=== PATIENT | male | born 1935 | race Hispanic/Latino ===

== ENCOUNTER 2017-07-17 15:37 | Inpatient (IN) | payer MEDICARE ==
[~2017-07-17] VITALS: Ht 167.6 cm; Wt 81.3 kg
[~2017-07-17 15:37] MED LIST: AMITIZA24 MCG PO; VICODIN 5-5001 EACH PO; Z.0.AMLODIPINE BESY1 PO; Z.0.GLYBURIDE5 MG PO; Z.0.TRICOR145 MG PO; Z.1.LISINOPRIL-HCT1 PO
[2017-07-17] MEDS ORDERED: ZOFRAN ODT4 MG (15:55)
[2017-07-17] MEDS ORDERED: LOSARTAN-HCTZ1 EACH PO (15:55)
[2017-07-17] MEDS ORDERED: HYDRALAZINE HCL25 MG PO (15:55)
[2017-07-17] MEDS ORDERED: prunelax (15:55)
[2017-07-17] MEDS ORDERED: NATEGLINIDE120 MG PO (15:55)
[2017-07-17] MEDS ORDERED: GLIMEPIRIDE2 MG PO (15:55)
[2017-07-17] MEDS ORDERED: ASPIRIN EC81 MG PO (15:55)
[2017-07-17] MEDS ORDERED: MORPHINE SULFATE 2 MG/ML SYR IV STA (16:14)
[2017-07-17] MEDS ORDERED: ONDANSETRON HCL INJ 2 MG/ML VIAL IV STA (16:14)
[2017-07-17 16:32] LABS: BASOPHILS % 0.5 % (0.0-1.0); EOSINOPHILS % 0.1 % (0.0-6.0); HEMATOCRIT 35.2 % (38.2-49.6); HEMOGLOBIN 11.8 g/dL (14.0-18.0); LYMPHOCYTES # (AUTO) 0.6 (1.0-3.2); MEAN CORPUSCULAR HEMOGLOBIN 32.2 pg (28-32); MEAN CORPUSCULAR HGB CONC 33.5 g/dL (31-35); MEAN CORPUSCULAR VOLUME 95.9 fL (81-99); MONOCYTES # (AUTO) 0.2 (0.2-0.8); MONOCYTES % 2.5 % (4.4-11.3); NEUTROPHILS # (AUTO) 7.5 (2.1-6.9); NEUTROPHILS % 89.5 % (38.7-80.0); PLATELET COUNT 218 x10e3/uL (140-360); RED BLOOD COUNT 3.67 x10e6/uL (4.3-5.7); RED CELL DISTRIBUTION WIDTH 13.3 % (11.7-14.4)
[2017-07-17 16:41] LABS: INR 1.01; PARTIAL THROMBOPLASTIN TIME 23.5 seconds (23.8-35.5); PROTHROMBIN TIME 13.8 seconds (11.9-14.5)
[2017-07-17 16:49] LABS: ALBUMIN 4.3 g/dL (3.5-5.0); ALBUMIN/GLOBULIN RATIO 1.4 (0.8-2.0); ANION GAP 14.8 mmol/L (8-16); CALCIUM 9.6 mg/dL (8.4-10.2); CREATININE, SERUM 1.34 mg/dL (0.72-1.25); POTASSIUM 3.8 mmol/L (3.5-5.1)
[2017-07-17 16:55] LABS: CREATINE KINASE MB 3.2 ng/mL (0.00-5.00); TROPONIN I 0.015 ng/mL (0-0.300)
[2017-07-17] MEDS ORDERED: DIATRIZOATE MEGL/DIATRIZOA SOD 30 ML BTL PO ONE (17:02)
[2017-07-17] MEDS ORDERED: SODIUM CHLORIDE 0.9% 1000ML 1,000 ML IV STA (17:19)
[2017-07-17] MEDS ORDERED: SODIUM CHLORIDE 0.9% 1000ML 1,000 ML ONE (17:24)
[2017-07-17 17:33] LABS: BILIRUBIN,URINE NEGATIVE (NEGATIVE); COLOR,URINE YELLOW (YELLOW); KETONES,URINE 1+ (NEGATIVE); LEUKOCYTE ESTERASE ,URINE NEGATIVE (NEGATIVE); NITRITE,URINE NEGATIVE (NEGATIVE); PROTEIN,URINE DIPSTICK NEGATIVE (NEGATIVE); URINE UROBILINOGEN 1 mg/dL (0.2 - 1)
[2017-07-17 17:34] LABS: BACTERIA,URINE RARE /HPF; CLARITY,URINE CLEAR (CLEAR); RBC,URINE 0-5 /HPF (0-5); WBC,URINE (MAN) 0-5 /HPF (0-5)
[2017-07-17 17:35] LABS: MUCUS,URINE MODERATE (RARE)
--- NOTE | 2017-07-17 17:36 | Diagnostic Imaging Report ---
PROCEDURE: A single AP view of the chest. COMPARISON: 09/05/12 INDICATIONS: VOMITING FINDINGS: Lines/tubes: None. Lungs: Limited by body habitus and shallow inspiration. No definite focal consolidation. Mild left basilar subsegmental atelectasis. Pleura: There is no significant pleural effusion or pneumothorax. Heart and mediastinum: Enlarged cardiac silhouette on this AP view. Aorta is mildly tortuous. Bones: No acute bony abnormality. IMPRESSION: Limited as above. No acute thoracic abnormality. Dictated by: Jairo Galarza M.D. on 07/17/2017 at 17:44 Electronically approved by: Jairo Galarza M.D. on 07/17/2017 at 17:44
--- NOTE | 2017-07-17 18:54 | Diagnostic Imaging Report ---
EXAM: CT Abdomen and Pelvis WITH contrast INDICATION: \S\R side abd pain, vomiting, hx cholecystectomy, appendectomy \[id number] \S\[id number] COMPARISON: CT dated 04/04/2015 TECHNIQUE: Abdomen and pelvis were scanned utilizing a multidetector helical scanner from the lung base to the pubic symphysis after administration of IV contrast. Coronal and sagittal reformations were obtained. Routine protocol was performed. Scan was performed when during portal venous phase. IV CONTRAST: 100 mL of Isovue-370 ORAL CONTRAST: Gastroview COMPLICATIONS: None RADIATION DOSE: Total DLP: 569.01 mGy*cm Estimated effective dose: (DLP x 0.015 x size factor) mSv CTDIvol has been reviewed. It is below the limits set by the Radiation Protocol Committee (RPC). FINDINGS: LINES and TUBES: None. LOWER THORAX: Unremarkable. Bibasilar subsegmental atelectasis. HEPATOBILIARY: No focal hepatic lesions. No biliary ductal dilation. GALLBLADDER: Surgically absent. SPLEEN: No splenomegaly. PANCREAS: Centrally noncalcified ill-defined mass in pancreatic uncinate process, inseparable from duodenum measuring approximately 3.3 x 4.5 cm (series 2, image 36). ADRENALS: No adrenal nodules KIDNEYS/URETERS: Kidneys enhance symmetrically. No hydronephrosis. Multiple bilateral subcentimeter hypodensities which are too small to characterize. 4 x 4 centimeters left midpole cyst. No stones. GI TRACT: No abnormal distention, wall thickening, or evidence of bowel obstruction. Colonic diverticulosis without evidence of diverticulitis. Appendix is not visualized. Contrast in lower esophagus. Small hiatal hernia. PELVIC ORGANS/BLADDER: Enlarged prostate measuring 5.6 cm in transverse diameter. Bladder is unremarkable. LYMPH NODES: No lymphadenopathy. VESSELS: There is mild atherosclerotic disease in the aorta and major arterial branches. PERITONEUM / RETROPERITONEUM: No free air or fluid. BONES: Unremarkable. SOFT TISSUES: Small fat-containing supraumbilical hernia. IMPRESSION: 1. No acute inflammatory process in the abdomen/pelvis. 2. Ill-defined mass in the area of pancreatic uncinate process with central calcification and some necrosis, inseparable from duodenum. This mass is not significantly changed when compared to CT dated 04/04/2015 and is probably benign. If clinically indicated, this can be further characterized with pancreatic mass protocol MRI. 3. Colonic diverticulosis without evidence of diverticulitis. 4. Small hiatal hernia and evidence of gastroesophageal reflux. 5. Enlarged prostate gland. Signed by: Dr. Jairo Galarza MD on 07/17/2017 6:50 PM
[2017-07-17] MEDS ORDERED: IOPAMIDOL 370 MG/ML 200 ML INFUS..BTL INJ ONE (19:22)
[2017-07-17] MEDS ORDERED: SODIUM CHLORIDE 0.9% 50ML 50 ML ONE (19:22)
[2017-07-17] MEDS ORDERED: PANTOPRAZOLE 40 MG 10ML VIAL IV STA (20:10)
[2017-07-17] MEDS ORDERED: DEXTROSE 50% SYRINGE 50 ML IV PRN (20:15)
[2017-07-17] MEDS ORDERED: MORPHINE SULFATE 5 MG/ML VIAL IV ONE (20:30)
[2017-07-17 20:55] VITALS: BP 180/75
[2017-07-17 21:00] VITALS: BP 180/75
[2017-07-17] MEDS: INSULIN REGULAR, HUMAN 100 UNIT/1 ML 3ML VIAL SQ SCH (21:00)
[2017-07-17] MEDS: ONDANSETRON HCL INJ 2 MG/ML VIAL IV PRN (23:58)
[2017-07-17] MEDS: MORPHINE SULFATE 5 MG/ML VIAL IV PRN (23:58)
[2017-07-18 00:32] VITALS: BP 130/60
[2017-07-18] MEDS: SODIUM CHLORIDE 0.9% 1000ML 1,000 ML IV SCH ×2 (04:38→06:15)
[2017-07-18 04:55] VITALS: BP 125/60
[2017-07-18 07:10] LABS: BASOPHILS % 0.3 % (0.0-1.0); EOSINOPHILS # (AUTO) 0.1 (0.0-0.4); EOSINOPHILS % 0.6 % (0.0-6.0); HEMATOCRIT 33.6 % (38.2-49.6); HEMOGLOBIN 11.2 g/dL (14.0-18.0); LYMPHOCYTES # (AUTO) 1.3 (1.0-3.2); LYMPHOCYTES % 10.5 % (18.0-39.1); MEAN CORPUSCULAR HEMOGLOBIN 32.2 pg (28-32); MEAN CORPUSCULAR HGB CONC 33.3 g/dL (31-35); MEAN CORPUSCULAR VOLUME 96.6 fL (81-99); MONOCYTES # (AUTO) 1.1 (0.2-0.8); MONOCYTES % 9.1 % (4.4-11.3); NEUTROPHILS # (AUTO) 9.5 (2.1-6.9); NEUTROPHILS % 79.2 % (38.7-80.0); PLATELET COUNT 225 x10e3/uL (140-360); RED BLOOD COUNT 3.48 x10e6/uL (4.3-5.7); RED CELL DISTRIBUTION WIDTH 13.3 % (11.7-14.4)
[2017-07-18] MEDS: INSULIN REGULAR, HUMAN 100 UNIT/1 ML 3ML VIAL SQ SCH ×4 (07:30→21:00)
[2017-07-18 07:38] VITALS: BP 131/60
[2017-07-18 07:52] LABS: ALANINE AMINOTRANSFERASE 15 IU/L (0-55); ALBUMIN 3.7 g/dL (3.5-5.0); ALBUMIN/GLOBULIN RATIO 1.6 (0.8-2.0); ALKALINE PHOSPHATASE 27 IU/L (40-150); AMYLASE 23 U/L (25-125); ANION GAP 11.3 mmol/L (8-16); BLOOD UREA NITROGEN 17 mg/dL (7-26); BUN/CREATININE RATIO 16 (6-25); CALCIUM 8.7 mg/dL (8.4-10.2); CARBON DIOXIDE 27 mmol/L (22-29); CHLORIDE 105 mmol/L (98-107); CREATININE, SERUM 1.04 mg/dL (0.72-1.25); EST GLOMERULAR FILTRATION RATE > 60 ML/MIN (60-); GLUCOSE 110 mg/dL (74-118); LIPASE 15 U/L (8-78); POTASSIUM 3.3 mmol/L (3.5-5.1); SODIUM 140 mmol/L (136-145)
[2017-07-18 07:53] LABS: TROPONIN I 0.036 ng/mL (0-0.300)
[2017-07-18] MEDS ORDERED: SODIUM CHLORIDE 0.9% 1000ML 1,000 ML IV SCH (09:00)
[2017-07-18] MEDS ORDERED: GADOBUTROL 10 MMOL/10 ML VIAL IV ONE (09:00)
[2017-07-18] MEDS ORDERED: SODIUM CHLORIDE 0.9% 50ML 50 ML ONE (09:09)
--- NOTE | 2017-07-18 10:06 | History and Physical ---
PRIMARY CARE PHYSICIAN: Dr. Wayne __Ward. CHIEF COMPLAINT: Abdominal pain. HISTORY OF PRESENT ILLNESS: This is an 82-year-old man with a history of a cholecystectomy, now developing right upper quadrant abdominal pain for 1 day. He said it is sharp and significant. Came to the hospital, found to have pancreatic lesion. He is admitted for further evaluation and management. Currently his pain has migrated to the pancreatic region and his epigastric region. He had some nausea and vomiting. Denies any diarrhea or fever. PAST MEDICAL HISTORY: Hypertension, diabetes mellitus, hyperlipidemia. PAST SURGICAL HISTORY: Cholecystectomy, appendectomy. ALLERGIES: PER THE ELECTRONIC MEDICAL RECORDS. FAMILY HISTORY/SOCIAL HISTORY: Patient is . He has 1 child. No alcohol, illicit drugs or cigarettes. MEDICATIONS: Per the electronic medical records. Reviewed. REVIEW OF SYSTEMS: Denies any dizziness, chest pain. VITAL SIGNS: Reviewed. PHYSICAL EXAMINATION GENERAL APPEARANCE: A tired-appearing man resting in bed. HEENT: Anicteric. Pupils responsive to light. No oral lesions. CARDIOVASCULAR: Normal S1/S2. LUNGS: Moderate breath sounds. ABDOMEN: Soft, nondistended. He has tenderness in the right upper quadrant but negative Baron sign. He has more tenderness in the epigastric region. No rebound. EXTREMITIES: No edema or calf tenderness. NEUROLOGICALLY: Alert and oriented x3. Moving all extremities. SKIN: Dry. PSYCHIATRIC: Normal affect. LABS: Reviewed. ASSESSMENT AND PLAN: This is an 82-year-old man. 1. Pancreatic mass. Unclear based on description provided by Radiology. We are awaiting the MRI of the abdomen to further evaluate. 2. Acute kidney injury. Will rehydrate patient. 3. Diverticulosis. 4. First-degree atrioventricular block. Avoid AV blocking agents. 5. Hypertension/hyperlipidemia. Restart home medications of amlodipine, fenofibrate and hydralazine. 6. Diabetes mellitus. Will get a hemoglobin A1c and lipid panel. 7. Prophylaxis. Will use SCDs and Pepcid. 8. Disposition. Follow up MRI. Job#: [id number] EV
[2017-07-18] MEDS: PANTOPRAZOLE 40 MG 10ML VIAL IV SCH (10:20)
[2017-07-18] MEDS: AMLODIPINE BESYLATE 10 MG TAB PO SCH (10:20)
[2017-07-18] MEDS: ASPIRIN 81 MG ENTERIC COATED PO SCH (10:20)
[2017-07-18] MEDS: HYDRALAZINE HCL 25 MG TAB PO SCH ×2 (10:20→16:36)
[2017-07-18] MEDS: FENOFIBRATE 145 MG TAB PO SCH (10:20)
[2017-07-18] MEDS ORDERED: POTASSIUM CHLORIDE 20 MEQ TAB CR PO ONE (10:30)
[2017-07-18] MEDS: MORPHINE SULFATE 5 MG/ML VIAL IV PRN ×3 (10:40→20:53)
--- NOTE | 2017-07-18 11:12 | Diagnostic Imaging Report ---
EXAM: MRI MRCP [facility] DATE: 07/18/2017 12:00 AM INDICATION: Abdominal pain COMPARISON: CT dated 07/17/2017 Technique: Multiplanar multisequence MRI/MRCP of the abdomen performed without and with contrast. Please see technologist worksheet for contrast dose. FINDINGS: Image quality moderately degraded secondary to motion artifact. Biliary system: The gallbladder is not visualized consistent with cholecystectomy. The common duct is not dilated. No filling defect is identified in the visualized duct. Pancreas: CT demonstrated partially calcified mass in the head of the pancreas again noted. AP diameter approximately 25 mm and transverse diameter of a proximally 31 mm. Signal characteristics are predominantly fluid suggesting predominantly cystic mass. Evaluation for minimal enhancement limited by averaging. There is no dilation of the pancreatic duct. Kidneys: Bilateral cystic lesions in the kidneys are simple in appearance. Largest in the mid left kidney measures 42 mm in diameter. Other solid organs: Otherwise, visualized solid organs are unremarkable. Other: No free fluid, suspicious adenopathy, or small bowel obstructive changes identified. The stomach is decompressed, which limits adequate evaluation. No aortic aneurysm is identified. Visualized marrow is unremarkable. Pelvis: Pelvis is only partially evaluated on coronal sequences. Urinary bladder is partially decompressed, limiting adequate evaluation. IMPRESSION: Cholecystectomy changes. There is no dilation of the common duct. No distinct filling defect is identified in the common duct. 31 x 25 mm cystic mass in the head of the pancreas. Area of calcification seen on CT not well evaluated with MRI. Differential considerations would include serous cystadenoma, serous cystadenocarcinoma, intraductal papillary mucinous neoplasm, or solid pseudopapillary tumor of the pancreas. Simple appearing renal cysts, most notably on the left. Signed by: Dr. Bran Rutherford MD on 07/18/2017 11:09 AM
[2017-07-18] MEDS: ONDANSETRON HCL 4 MG ORAL DISINTEGRATING TAB PO SCH ×2 (11:24→17:01)
[2017-07-18 11:32] VITALS: BP 146/67
[2017-07-18 15:25] LABS: CREATINE KINASE MB 4.1 ng/mL (0.00-5.00); TROPONIN I 0.047 ng/mL (0-0.300)
[2017-07-18 15:35] VITALS: BP 131/63
[2017-07-18 20:00] VITALS: BP 139/66
[2017-07-18] MEDS: ONDANSETRON HCL INJ 2 MG/ML VIAL IV PRN (20:53)
[2017-07-19] VITALS: BP 133/62
[2017-07-19] MEDS: ONDANSETRON HCL 4 MG ORAL DISINTEGRATING TAB PO SCH ×4 (00:33→17:07)
[2017-07-19] MEDS: MORPHINE SULFATE 5 MG/ML VIAL IV PRN ×2 (01:55→06:50)
[2017-07-19 04:00] VITALS: BP 144/65
[2017-07-19] MEDS ORDERED: LEVOFLOXACIN 750MG/D5W 150ML 150 ML IV SCH (06:15)
[2017-07-19] MEDS ORDERED: HYDROMORPHONE 1MG/1ML INJ IV PRN (07:45)
[2017-07-19] MEDS: METRONIDAZOLE 750MG/NS 150ML 150 ML IV SCH ×3 (08:30→21:47)
[2017-07-19] MEDS ORDERED: HYDROMORPHONE 2MG/ML INJ IV PRN ×2 (08:45→21:30)
[2017-07-19] MEDS: FENOFIBRATE 145 MG TAB PO SCH (09:32)
[2017-07-19] MEDS: HYDRALAZINE HCL 25 MG TAB PO SCH ×3 (09:32→22:13)
[2017-07-19] MEDS: ASPIRIN 81 MG ENTERIC COATED PO SCH (09:32)
[2017-07-19] MEDS: PANTOPRAZOLE 40 MG 10ML VIAL IV SCH (09:32)
[2017-07-19] MEDS: AMLODIPINE BESYLATE 10 MG TAB PO SCH (09:33)
[2017-07-19] MEDS: INSULIN REGULAR, HUMAN 100 UNIT/1 ML 3ML VIAL SQ SCH ×4 (09:33→20:45)
[2017-07-19] MEDS: ONDANSETRON HCL INJ 2 MG/ML VIAL IV PRN (09:36)
[2017-07-19 10:18] LABS: BASOPHILS % 0.4 % (0.0-1.0); EOSINOPHILS % 0.2 % (0.0-6.0); HEMATOCRIT 34.5 % (38.2-49.6); HEMOGLOBIN 11.3 g/dL (14.0-18.0); LYMPHOCYTES # (AUTO) 0.9 (1.0-3.2); LYMPHOCYTES % 8.3 % (18.0-39.1); MEAN CORPUSCULAR HEMOGLOBIN 31.7 pg (28-32); MEAN CORPUSCULAR HGB CONC 32.8 g/dL (31-35); MEAN CORPUSCULAR VOLUME 96.6 fL (81-99); MONOCYTES # (AUTO) 0.9 (0.2-0.8); MONOCYTES % 8.8 % (4.4-11.3); NEUTROPHILS # (AUTO) 8.5 (2.1-6.9); NEUTROPHILS % 81.8 % (38.7-80.0); PLATELET COUNT 209 x10e3/uL (140-360); RED BLOOD COUNT 3.57 x10e6/uL (4.3-5.7)
[2017-07-19 10:28] LABS: ANION GAP 16.7 mmol/L (8-16); BLOOD UREA NITROGEN 14 mg/dL (7-26); BUN/CREATININE RATIO 14 (6-25); CALCIUM 8.8 mg/dL (8.4-10.2); CARBON DIOXIDE 21 mmol/L (22-29); CHLORIDE 103 mmol/L (98-107); CREATININE, SERUM 1.02 mg/dL (0.72-1.25); EST GLOMERULAR FILTRATION RATE > 60 ML/MIN (60-); GLUCOSE 215 mg/dL (74-118); POTASSIUM 3.7 mmol/L (3.5-5.1); SODIUM 137 mmol/L (136-145)
--- NOTE | 2017-07-19 11:45 | Progress Note ---
DATE: July 19, 2017 MEDICINE PROGRESS NOTE SUBJECTIVE: Overnight continues to have abdominal discomfort. REVIEW OF SYSTEMS: Denies any dizziness. VITAL SIGNS: Reviewed. T-max is 100.3. PHYSICAL EXAMINATION GENERAL APPEARANCE: A tired-appearing man resting in bed. HEENT: Anicteric. CARDIOVASCULAR: Normal S1/S2. LUNGS: Moderate breath sounds. ABDOMEN: Soft, nondistended. He has tenderness in the epigastrium and slightly right to the epigastrium. There is negative Baron sign. EXTREMITIES: No edema. SKIN: Dry. PSYCHIATRIC: Normal affect. LABS: Reviewed. MEDICATIONS: Reviewed. ASSESSMENT AND PLAN: This is an 82-year-old man. 1. Sepsis. He has tachycardia, leukocytosis, fever. Will start him on Levaquin and Flagyl. Will get blood cultures. 2. Cystic mass in the head of the pancreas. A GI evaluation. 3. Acute kidney injury. Rehydrate. 4. Diverticulosis. 5. First-degree atrioventricular block. Avoid AV blocking agents. 6. Hypertension/hyperlipidemia. Continue medication regimen. 7. Diabetes mellitus. Follow up hemoglobin A1c and lipid panel. 8. Prophylaxis. SCDs and Pepcid. 9. Disposition. Start antibiotics. Obtain blood cultures. Get lipid panel. Follow up hemoglobin A1c. GI consultation, evaluation. Job#: [id number] EV
[2017-07-19] MEDS: SUCRALFATE 1 GM/10 ML SUSP NG SCH ×3 (12:30→21:46)
[2017-07-19 16:00] VITALS: BP 150/63
--- NOTE | 2017-07-19 17:01 | Consultation ---
DATE OF CONSULTATION: July 19, 2017 GASTROINTESTINAL CONSULTATION REASON FOR CONSULTATION: Abdominal pain. HISTORY OF PRESENT ILLNESS: Mr. Huggins is an 82-year-old gentleman with a past medical history as listed below, presented to the hospital with complaints of acute onset of abdominal pain. The patient states that he has been having this pain for approximately 2 days now. The patient describes this pain as in the right upper quadrant with radiation into the back. The patient denies any previous history of this pain. However, in review of the chart, the patient had a similar episode approximately 2 years ago, for which he was admitted to the hospital, had a CAT scan done at that time as well. The patient reports some nausea and vomiting with p.o. intake, denies any diarrhea or fever. PAST MEDICAL HISTORY 1. Hypertension. 2. Diabetes. 3. Hyperlipidemia. PAST SURGICAL HISTORY 1. Cholecystectomy. 2. Appendectomy. ALLERGIES: NO KNOWN DRUG ALLERGIES. MEDICATIONS: Per the MAR. FAMILY HISTORY: Negative for GI malignancies. REVIEW OF SYSTEMS: A 12-point review of systems was completed with the patient. Pertinent positives are included in the HPI. SOCIAL HISTORY: Negative for alcohol, tobacco or illicit drug use. PHYSICAL EXAMINATION VITAL SIGNS: Temperature 100.3 T-max, blood pressure 144/65, pulse rate of 84, saturating 93% on room air with a respiratory rate of 20. IN GENERAL: This is a well-developed, well-nourished gentleman with abdominal pain symptoms. The patient states this pain is difficult for him to control as he is not receiving any pain medications. In no acute distress, resting comfortably in bed. HEENT: Head normocephalic, atraumatic. Extraocular movements are intact. Oropharynx is clear. NECK: Supple. No palpable thyromegaly or masses. CARDIOVASCULAR: Regular rate and rhythm. No murmurs, gallops or rubs. PMI is nondisplaced. LUNGS: Clear to auscultation with equal chest expansion. ABDOMEN: Soft with tenderness to palpation in the right upper quadrant as well as in the epigastric area. No rebound, no guarding. EXTREMITIES: 2+ pulses. No clubbing, cyanosis or edema. NEUROLOGIC: Nonfocal. PSYCHIATRIC: Euthymic. LABS: White blood cell count 12.0, hemoglobin 11.2, hematocrit of 33.6, platelet count of 225. Sodium 140, potassium 3.3, chloride 105, bicarb 27, BUN of 17, creatinine of 1. Amylase and lipase were normal. Liver enzymes were normal. INR is 1. UA showed ketosis and glucose. CT abdomen and pelvis dated July 17, 2017: (1) No inflammatory process. (2) Ill-defined mass in the area of the uncinate, unchanged. (3) Colonic diverticulosis with diverticulitis. (4) Small hiatal hernia. (5) Enlarged prostate. MRI done July 18, 2017: (1) Cholecystectomy. (2) Cystic mass in the head of the pancreas with calcification. (3) Renal cysts. ASSESSMENT AND PLAN: This is an 82-year-old gentleman who presents to the hospital with complaints of epigastric pain with radiation into his back. 1. Epigastric pain. The patient's abdominal pain symptoms are actually most consistent with a diagnosis of chronic pancreatitis given the stable cystic lesion noted in the uncinate process. At this time, I think conservative management is reasonable with IV fluids and pain medications as needed. 2. Pancreatic mass. The patient has a cystic calcified pancreatic mass noted in the uncinate process that is unchanged since 2014. Certainly, given the description, I think this is most likely a benign serous cystadenoma versus an area of chronic calcification from a pseudocyst. At some time in the future, the patient will need an endoscopic ultrasound for further evaluation of this lesion, but given its stability, it is much less concerning for a pancreatic neoplasm. I have explained this to the family. 3. Anemia. The patient has a mild anemia without evidence of active bleeding. Will continue to follow H\T\H and give him GI protective agents. I would like to thank Dr. Shields for allowing us to participate in the care of this patient. Job#: [id number] EV
[2017-07-19 20:00] VITALS: BP 142/68
[2017-07-19] MEDS ORDERED: ACETAMINOPHEN 325 MG TAB PO PRN (20:45)
[2017-07-19] MEDS ORDERED: DEXTROSE 50% SYRINGE 50 ML IV PRN (21:30)
[2017-07-19] MEDS ORDERED: ONDANSETRON HCL INJ 2 MG/ML VIAL IV PRN (21:30)
[2017-07-19] MEDS: SODIUM CHLORIDE 0.9% 1000ML 1,000 ML IV SCH (21:30)
[2017-07-19] MEDS: ACETAMINOPHEN 325 MG TAB PO PRN (21:48)
[2017-07-19] MEDS: LEVOFLOXACIN 750MG/D5W 150ML 150 ML IV SCH (22:48)
[2017-07-20] VITALS: BP 126/64
[2017-07-20] MEDS: ONDANSETRON HCL 4 MG ORAL DISINTEGRATING TAB PO SCH ×5 (01:03→23:43)
[2017-07-20 04:00] VITALS: BP 142/72
[2017-07-20] MEDS ORDERED: METRONIDAZOLE 500MG/NS 100ML 200 ML IV ONE (06:05)
[2017-07-20] MEDS: METRONIDAZOLE 750MG/NS 150ML 150 ML IV SCH ×3 (06:09→22:24)
[2017-07-20 07:09] LABS: BASOPHILS # (AUTO) 0.1 (0.0-0.1); BASOPHILS % 0.5 % (0.0-1.0); EOSINOPHILS # (AUTO) 0.1 (0.0-0.4); EOSINOPHILS % 0.9 % (0.0-6.0); HEMATOCRIT 33.2 % (38.2-49.6); HEMOGLOBIN 11.1 g/dL (14.0-18.0); LYMPHOCYTES # (AUTO) 1.4 (1.0-3.2); LYMPHOCYTES % 14.3 % (18.0-39.1); MEAN CORPUSCULAR HEMOGLOBIN 31.7 pg (28-32); MEAN CORPUSCULAR HGB CONC 33.4 g/dL (31-35); MEAN CORPUSCULAR VOLUME 94.9 fL (81-99); MONOCYTES # (AUTO) 1.3 (0.2-0.8); MONOCYTES % 12.9 % (4.4-11.3); NEUTROPHILS # (AUTO) 6.9 (2.1-6.9); NEUTROPHILS % 70.8 % (38.7-80.0); PLATELET COUNT 198 x10e3/uL (140-360); RED CELL DISTRIBUTION WIDTH 12.6 % (11.7-14.4)
[2017-07-20] MEDS: INSULIN REGULAR, HUMAN 100 UNIT/1 ML 3ML VIAL SQ SCH ×4 (07:30→20:54)
[2017-07-20] MEDS ORDERED: INSULIN REGULAR, HUMAN 100 UNIT/1 ML 3ML VIAL SQ SCH (07:30)
[2017-07-20] MEDS: SUCRALFATE 1 GM/10 ML SUSP NG SCH ×3 (07:30→20:49)
[2017-07-20 08:07] VITALS: BP 141/63
[2017-07-20] MEDS ORDERED: HYDRALAZINE HCL 25 MG TAB PO SCH (09:00)
[2017-07-20] MEDS: HYDRALAZINE HCL 25 MG TAB PO SCH ×2 (09:00→17:00)
[2017-07-20] MEDS: PANTOPRAZOLE 40 MG 10ML VIAL IV SCH (09:00)
[2017-07-20] MEDS: AMLODIPINE BESYLATE 10 MG TAB PO SCH (09:00)
[2017-07-20] MEDS: ASPIRIN 81 MG ENTERIC COATED PO SCH (09:00)
[2017-07-20] MEDS: FENOFIBRATE 145 MG TAB PO SCH (09:00)
[2017-07-20 09:01] LABS: ANION GAP 12.4 mmol/L (8-16); BLOOD UREA NITROGEN 10 mg/dL (7-26); BUN/CREATININE RATIO 11 (6-25); CALCIUM 8.7 mg/dL (8.4-10.2); CARBON DIOXIDE 25 mmol/L (22-29); CHLORIDE 102 mmol/L (98-107); EST GLOMERULAR FILTRATION RATE > 60 ML/MIN (60-); GLUCOSE 124 mg/dL (74-118); POTASSIUM 3.4 mmol/L (3.5-5.1); SODIUM 136 mmol/L (136-145)
[2017-07-20 11:41] VITALS: BP 150/65
[2017-07-20 16:08] VITALS: BP 123/58
[2017-07-20 20:05] VITALS: BP 127/63
[2017-07-20] MEDS: ACETAMINOPHEN 325 MG TAB PO PRN (20:49)
[2017-07-20] MEDS: LEVOFLOXACIN 750MG/D5W 150ML 150 ML IV SCH (20:54)
[2017-07-20] MEDS: SODIUM CHLORIDE 0.9% 1000ML 1,000 ML IV SCH (23:43)
[2017-07-21 00:19] VITALS: BP 108/64
[2017-07-21 04:00] VITALS: BP 122/59
[2017-07-21] MEDS: METRONIDAZOLE 750MG/NS 150ML 150 ML IV SCH ×3 (05:18→22:06)
[2017-07-21] MEDS: ONDANSETRON HCL 4 MG ORAL DISINTEGRATING TAB PO SCH ×4 (05:18→23:22)
[2017-07-21] MEDS ORDERED: LEVAQUIN500 MG PO (05:53)
[2017-07-21] MEDS ORDERED: PROTONIX40 MG PO (05:53)
[2017-07-21] MEDS ORDERED: FLAGYL500 MG PO (05:53)
[2017-07-21 06:53] LABS: BASOPHILS % 0.4 % (0.0-1.0); EOSINOPHILS # (AUTO) 0.1 (0.0-0.4); HEMATOCRIT 29.3 % (38.2-49.6); HEMOGLOBIN 10.1 g/dL (14.0-18.0); LYMPHOCYTES # (AUTO) 1.2 (1.0-3.2); LYMPHOCYTES % 14.9 % (18.0-39.1); MEAN CORPUSCULAR HEMOGLOBIN 32.3 pg (28-32); MEAN CORPUSCULAR HGB CONC 34.5 g/dL (31-35); MEAN CORPUSCULAR VOLUME 93.6 fL (81-99); MONOCYTES # (AUTO) 0.9 (0.2-0.8); MONOCYTES % 11.9 % (4.4-11.3); NEUTROPHILS # (AUTO) 5.6 (2.1-6.9); NEUTROPHILS % 71.3 % (38.7-80.0); PLATELET COUNT 187 x10e3/uL (140-360); RED BLOOD COUNT 3.13 x10e6/uL (4.3-5.7); RED CELL DISTRIBUTION WIDTH 12.7 % (11.7-14.4)
[2017-07-21 07:28] LABS: ANION GAP 10.3 mmol/L (8-16); BLOOD UREA NITROGEN 9 mg/dL (7-26); BUN/CREATININE RATIO 10 (6-25); CALCIUM 8.2 mg/dL (8.4-10.2); CARBON DIOXIDE 25 mmol/L (22-29); CHLORIDE 106 mmol/L (98-107); CREATININE, SERUM 0.86 mg/dL (0.72-1.25); EST GLOMERULAR FILTRATION RATE > 60 ML/MIN (60-); GLUCOSE 109 mg/dL (74-118); POTASSIUM 3.3 mmol/L (3.5-5.1); SODIUM 138 mmol/L (136-145)
[2017-07-21] MEDS: INSULIN REGULAR, HUMAN 100 UNIT/1 ML 3ML VIAL SQ SCH ×4 (07:30→20:35)
[2017-07-21 07:42] VITALS: BP 139/60
[2017-07-21] MEDS ORDERED: POTASSIUM CHLORIDE 20 MEQ TAB CR PO STA (08:02)
[2017-07-21] MEDS: FENOFIBRATE 145 MG TAB PO SCH (08:51)
[2017-07-21] MEDS: HYDRALAZINE HCL 25 MG TAB PO SCH ×2 (08:51→16:56)
[2017-07-21] MEDS: ASPIRIN 81 MG ENTERIC COATED PO SCH (08:51)
[2017-07-21] MEDS: AMLODIPINE BESYLATE 10 MG TAB PO SCH (08:51)
[2017-07-21] MEDS: SUCRALFATE 1 GM/10 ML SUSP NG SCH ×4 (08:51→20:32)
[2017-07-21] MEDS: PANTOPRAZOLE 40 MG 10ML VIAL IV SCH (08:51)
--- NOTE | 2017-07-21 08:57 | Discharge Summary ---
PRINCIPAL DIAGNOSES 1. Sepsis. 2. CANCEL DICTATION, LENGTH 0:36 KRISTY DODD MD Job#: [id number] RI
[2017-07-21 12:08] VITALS: BP 150/66
[2017-07-21 16:27] VITALS: BP 136/63
[2017-07-21 20:20] VITALS: BP 145/64
[2017-07-21] MEDS: LEVOFLOXACIN 750MG/D5W 150ML 150 ML IV SCH (20:33)
[2017-07-21] MEDS: SODIUM CHLORIDE 0.9% 1000ML 1,000 ML IV SCH (21:30)
[2017-07-22 00:27] VITALS: BP 144/65
--- NOTE | 2017-07-22 04:54 | Progress Note ---
DATE: July 20, 2017 TIME: 6:50 a.m. SUBJECTIVE: Overnight, no events. REVIEW OF SYSTEMS: Denies any dizziness. PHYSICAL EXAMINATION VITAL SIGNS: Reviewed. GENERAL APPEARANCE: A tired-appearing man resting in bed. HEENT: Anicteric. CARDIOVASCULAR: Normal S1/S2. Without murmurs. ABDOMEN: Soft, mild tenderness in the epigastrium. EXTREMITIES: No edema. SKIN: Dry. PSYCHIATRIC: Normal affect. LABS: Reviewed. MEDICATIONS: Reviewed. ASSESSMENT AND PLAN: An 82-year-old man. 1. Sepsis. 2. Cystic mass in the head of the pancreas. 3. Acute kidney injury. 4. Diverticulosis. 5. First-degree atrioventricular block. 6. Hypertension/hyperlipidemia. 7. Diabetes mellitus. PLAN 1. Will need outpatient evaluation of this mass. 2. Discharge planning. 3. Follow up cultures. 4. Continue IV antibiotics, Levaquin and Flagyl. 5. Monitor renal function. Job#: [id number] CQ
--- NOTE | 2017-07-22 05:02 | Progress Note ---
DATE: July 21, 2017 TIME: 6:30 a.m. OVERNIGHT: No events. Feeling better. Requesting to be discharged. REVIEW OF SYSTEMS: Denies any dizziness or chest pain. PHYSICAL EXAMINATION VITAL SIGNS: Reviewed. GENERAL: A tired-appearing man resting in bed. HEENT: Anicteric. Pupils respond to light. CARDIOVASCULAR: Normal S1 and S2. LUNGS: Moderate breath sounds. ABDOMEN: Soft and nondistended. He has mild tenderness in the epigastrium. EXTREMITIES: No edema. SKIN: Dry. PSYCHIATRIC: Flat affect. LABS: Reviewed. MEDICATIONS: Reviewed. ASSESSMENT: An 82-year-old man with: 1. Sepsis. 2. Cystic mass at the head of the pancreas. 3. Acute kidney injury. 4. Diverticulosis. 5. First-degree atrioventricular block. 6. Hypertension/hyperlipidemia. 7. Diabetes mellitus: Hemoglobin A1c 6, LDL 79. PLAN 1. Continue IV Levaquin and IV Flagyl. 2. Follow up cultures. Awaiting for cultures to be negative before discharge. 3. Monitor vitals. 4. He needs to follow up outpatient for the pancreatic mass that is seen. GI wants to perform an EUS, endoscopic ultrasound outpatient. 5. Follow up cultures. . Discharge home tomorrow. Job#: [id number] ALEXANDER
[2017-07-22 05:15] VITALS: BP 110/50
[2017-07-22] MEDS: ONDANSETRON HCL 4 MG ORAL DISINTEGRATING TAB PO SCH ×2 (05:24→12:15)
[2017-07-22] MEDS: METRONIDAZOLE 750MG/NS 150ML 150 ML IV SCH (05:24)
[2017-07-22] MEDS: INSULIN REGULAR, HUMAN 100 UNIT/1 ML 3ML VIAL SQ SCH (07:30)
[2017-07-22 07:55] VITALS: BP 140/62
[2017-07-22] MEDS: AMLODIPINE BESYLATE 10 MG TAB PO SCH (08:45)
[2017-07-22] MEDS: FENOFIBRATE 145 MG TAB PO SCH (08:45)
[2017-07-22] MEDS: SUCRALFATE 1 GM/10 ML SUSP NG SCH ×2 (08:45→12:15)
[2017-07-22] MEDS: ASPIRIN 81 MG ENTERIC COATED PO SCH (08:45)
[2017-07-22] MEDS: HYDRALAZINE HCL 25 MG TAB PO SCH (08:45)
[2017-07-22] MEDS: PANTOPRAZOLE 40 MG 10ML VIAL IV SCH (09:50)
[2017-07-22 11:37] VITALS: BP 159/69
[2017-07-22] MEDS ORDERED: BISACODYL 5 MG TAB EC PO ONE (12:30)
--- NOTE | 2017-07-22 16:02 | Discharge Summary ---
FINAL DISCHARGE DIAGNOSES 1. Abdominal pain with underlying cystic mass on the pancreatic head. 2. Sepsis, ruled out. 3. Acute kidney injury, resolved. 4. Diverticulosis. 5. Hypertension. 6. Type-2 diabetes. CONSULTANTS: Gastroenterology. VITAL SIGNS: Temperature is 98.8, pulse is 76, respiratory rate 20, blood pressure 159/69 and pulse ox 97% on room air. LAB FINDINGS: Show white count 7.8, hemoglobin is 10.1, hematocrit 29 and platelets of 187,000. Coagulation: INR is 1. Chemistry: Sodium 138, potassium 3.4, chloride 106, bicarbonate 25, anion gap of 10. BUN is 9, creatinine 0.86, glucose of 109. His A1c is 6. His troponins were negative x3. Urinalysis was negative. MICROBIOLOGY: Blood and urine cultures were negative. IMAGING STUDIES: Chest x-ray showed no acute findings. CT of the abdomen and pelvis shows an ill-defined mass in the area of the pancreatic uncinate process with central calcifications and some necrosis. This was very difficult to discern in which GI was consulted. There is no acute inflammatory process in the abdomen or the pelvis. There was some evidence of diverticulosis. MRCP was performed with evidence of cystic mass in the head of the pancreas. There is multiple simple renal cysts seen on the left kidney. HOSPITAL COURSE: This gentleman is an 82-year-old male who came in with complaints of right upper quadrant abdominal pain for one day prior to arrival to the ED. Patient was admitted and imaging studies were performed. CT abdomen and pelvis was concerning for underlying pancreatic mass on the head of the pancreas and GI was consulted. GI recommended outpatient followup with them to perform an endoscopic ultrasound as an outpatient procedure. Patient's abdominal pain resolved with no other complaints. His labs were stable. Patient verbalized understanding to follow up outpatient with GI specialist in relation to his pancreatic mass. I explained this to him thoroughly and all cards and business information and phone numbers and address were given to the patient. He will be discharged on oral antibiotics as per his primary attending. On discharge, vital signs are stable, and lab review was stable. The patient was seen and evaluated thoroughly and he had no other complaints. Patient verbalized understanding and agrees with plan of care to follow up accordingly as an outpatient with the GI specialist for endoscopic ultrasound, and will be discharged on oral antibiotics as well. DISCHARGE MEDICATIONS: See medicine reconciliation form. DISPOSITION: To home. CONDITION: Stable. FOLLOWUP: With GI specialist in 1 to 2 weeks for endoscopic ultrasound evaluation and further evaluation of pancreatic mass. Patient verbalized understanding and agrees with plan of care. Follow up with primary care physician in 1 week. If he has worsening symptoms, the patient is advised to come back to the ED for further evaluation. Discharge summary took greater than 35 minutes. ELGIN VALENZUELA MD Job#: [id number]
== END 2017-07-22 14:13 | disposition home or self-care (01) | DRG 439 ==
LOC: ER 15:37 → IMCU 20:25 → OBSVTOIN 07-19 06:08 → MED/SURG3 07-19 13:35
PROVIDERS: ADMIT Internal Medicine; ATTEND Internal Medicine
DX: K86.9 Disease of pancreas, unspecified (principal); N17.9 Acute kidney failure, unspecified; E11.9 Type 2 diabetes mellitus without complications; D64.9 Anemia, unspecified; I10 Essential (primary) hypertension; E78.5 Hyperlipidemia, unspecified; K57.90 Diverticulosis of intestine, part unspecified, without perforation or abscess without bleeding; I44.0 Atrioventricular block, first degree; Z28.21 Immunization not carried out because of patient refusal; Z79.82 Long term (current) use of aspirin
CPT/HCPCS: 36415; 71010; 74177; 74183; 80048; 80053; 80061; 81001; 82150; 82550; 82553; 82948; 83036; 83690; 83735; 84484; 85025; 85610; 85730; 87040; 87086; 93005; 96361; 96367; 96376; 99284; A9585; G0378; J2270; J2405; J7030; Q9967

== ENCOUNTER 2018-10-09 09:08 | Emergency (ER) | payer MEDICARE ==
[~2018-10-09] VITALS: Ht 167.6 cm; Wt 81.2 kg
[~2018-10-09 09:08] MED LIST changes: +ASPIRIN EC81 MG PO; +FLAGYL500 MG PO; +GLIMEPIRIDE2 MG PO; +HYDRALAZINE HCL25 MG PO; +LEVAQUIN500 MG PO; +LOSARTAN-HCTZ1 EACH PO; +NATEGLINIDE120 MG PO; +PROTONIX40 MG PO; +ZOFRAN ODT4 MG; +prunelax
--- OUTSIDE RECORDS SUMMARY | 2018-10-09 09:12 | XMS REPORT ---
[facility] Address Unknown Phone Unavailable Care Team Providers Care Lead Setter Name Role Phone KRISTY DODD Unavailable Unavailable Problems This patient has no known problems. Allergies, Adverse Reactions, Alerts This patient has no known allergies or adverse reactions. Medications This patient has no known medications. Results Test Description Test Time Test Comments Text Results Atomic Results Result Comments MRI MRCP [address] [address] Patient Name: PRIYA RICE MR #: [id number] : 1935 Age/Sex: 82/M Req #: [id number] Adm Physician: KRISTY DODD MD Ordered by: JAVIER SANCHEZ MD Report #: [id number] Location: [facility] Room/Bed: [place] [address] Procedure: [id number] MRI/MRI MRCP [facility] Exam Date: 07/18/17 Exam Time: 924 REPORT STATUS: Signed EXAM: MRI MRCP O DATE: 07/18/2017 12:00 AM INDICATION: Abdominal pain COMPARISON: CT dated 07/17/2017 Technique: Multiplanar multisequence MRI/MRCP of the abdomen performed without and with contrast. Please see technologist worksheet for contrast dose. FINDINGS: Image quality moderately degraded secondary to motion artifact. Biliary system: The gallbladder is not visualized consistent with cholecystectomy. The common duct is not dilated. No filling defect is identified in the visualized duct. Pancreas: CT demonstrated partially calcified mass in the head of the pancreas again noted. AP diameter approximately 25 mm and transverse diameter of a proximally 31 mm. Signal characteristics are predominantly fluid suggesting predominantly cystic mass. Evaluation for minimal enhancement limited by averaging. There is no dilation of the pancreatic duct. Kidneys: Bilateral cystic lesions in the kidneys are simple in appearance. Largest in the mid left kidney measures 42 mm in diameter. Other solid organs: Otherwise, visualized solid organs are unremarkable. Other: No free fluid, suspicious adenopathy, or small bowel obstructive changes identified. The stomach is decompressed, which limits adequate evaluation. No aortic aneurysm is identified. Visualized marrow is unremarkable. Pelvis: Pelvis is only partially evaluated on coronal sequences. Urinary bladder is partially decompressed, limiting adequate evaluation. IMPRESSION: Cholecystectomy changes. There is no dilation of the common duct. No distinct filling defect is identified in the common duct. 31 x 25 mm cystic mass in the head of the pancreas. Area of calcification seen on CT not well evaluated with MRI. Differential considerations would include serous cystadenoma, serous cystadenocarcinoma, intraductal papillary mucinous neoplasm, or solid pseudopapillary tumor of the pancreas. Simple appearing renal cysts, most notably on the left. Signed by: Dr. Bran Rutherford MD on 07/18/2017 11:09 AM Dictated By: BRAN RUTHERFORD MD 08 Transcribed By: VIKY on 07/18/171108 COPY TO: JAVIER SANCHEZ MD CT ABDOMEN/PELVIS [place] [address] Patient Name: PRIYA RICE MR #: [id number] : 1935 Age/Sex: 82/M Req #: [id number] Adm Physician: Ordered by: KOLBY FLORES Report #: [id number] Location: ER Room/Bed: Procedure: [id number] CT/CT ABDOMEN/PELVIS W Exam Date: 07/17/17 Exam Time: 1822 REPORT STATUS: Signed EXAM: CT Abdomen and Pelvis WITH contrast INDICATION: COMPARISON: CT dated 04/04/2015 TECHNIQUE: Abdomen and pelvis were scanned utilizing a multidetector helical scanner from the lung base to the pubic symphysis after administration of IV contrast. Coronal and sagittal reformations were obtained. Routine protocol was performed. Scan was performed when during portal venous phase. IV CONTRAST: 100 mL of Isovue-370 ORAL CONTRAST: Gastroview COMPLICATIONS: None RADIATION DOSE: Total DLP: 569.01 mGy*cm Estimated effective dose: (DLP x 0.015 x size factor) mSv CTDIvol has been reviewed. It is below the limits set by the Radiation Protocol Committee (RPC). FINDINGS: LINES and TUBES: None. LOWER THORAX: Unremarkable. Bibasilar subsegmental atelectasis. HEPATOBILIARY: No focal hepatic lesions. No biliary ductal dilation. GALLBLADDER: Surgically absent. SPLEEN: No splenomegaly. PANCREAS: Centrally noncalcified ill-defined mass in pancreatic uncinate process, inseparable from duodenum measuring approximately 3.3 x 4.5 cm (series 2, image 36). ADRENALS: No adrenal nodules KIDNEYS/URETERS: Kidneys enhance symmetrically. No hydronephrosis. Multiple bilateral subcentimeter hypodensities which are too small to characterize. 4 x 4 centimeters left midpole cyst. No stones. GI TRACT: No abnormal distention, wall thickening, or evidence of bowel obstruction. Colonic diverticulosis without evidence of diverticulitis. Appendix is not visualized. Contrast in lower esophagus. Small hiatal hernia. PELVIC ORGANS/BLADDER: Enlarged prostate measuring 5.6 cm in transverse diameter. Bladder is unremarkable. LYMPH NODES: No lymphadenopathy. VESSELS: There is mild atherosclerotic disease in the aorta and major arterial branches. PERITONEUM / RETROPERITONEUM: No free air or fluid. BONES: Unremarkable. SOFT TISSUES: Small fat-containing supraumbilical hernia. IMPRESSION: 1. No acute inflammatory process in the abdomen/pelvis. 2. Ill-defined mass in the area of pancreatic uncinate process with central calcification and some necrosis, inseparable from duodenum. This mass is not significantly changed when compared to CT dated 04/04/2015 and is probably benign. If clinically indicated, this can be further characterized with pancreatic mass protocol MRI. 3. Colonic diverticulosis without evidence of diverticulitis. 4. Small hiatal hernia and evidence of gastroesophageal reflux. 5. Enlarged prostate gland. Signed by: Dr. Jairo Rowley MD on 07/17/2017 6:50 PM Dictated By: JAIRO ROWLEY MD 49 Transcribed By: VIKY on 07/17/171849 COPY TO: KOLBY FLORES CHEST SINGLE (PORTABLE) [place] [address] Patient Name: PRIYA RICE MR #: [id number] : 1935 Age/Sex: 82/M Req #: [id number] Adm Physician: Ordered by: KOLBY FLORES Report #: [id number] Location: ER Room/Bed: Procedure: [id number] DX/CHEST SINGLE (PORTABLE) Exam Date: 07/17/17 Exam Time: 1648 REPORT STATUS: Signed PROCEDURE: A single AP view of the chest. COMPARISON: 09/05/12 INDICATIONS: VOMITING FINDINGS: Lines/tubes: None. Lungs: Limited by body habitus and shallow inspiration. No definite focal consolidation. Mild left basilar subsegmental atelectasis. Pleura: There is no significant pleural effusion or pneumothorax. Heart and mediastinum: Enlarged cardiac silhouette on this AP view. Aorta is mildly tortuous. Bones: No acute bony abnormality. IMPRESSION: Limited as above. No acute thoracic abnormality. Dictated by: Jairo Rowley M.D. on 07/17/2017 at 17:44 Electronically approved by: Jairo Rowley M.D. on 07/17/2017 at 17:44 Dictated By: JAIRO ROWLEY MD 43 Transcribed By: FAWAD on 07/17/171743 COPY TO: KOLBY FLORES
--- NOTE | 2018-10-09 09:30 | NUR ---
Dr. Miller states patient may take PO home medication at this time.
[2018-10-09] MEDS ORDERED: SODIUM CHLORIDE 0.9% 1000ML 1,000 ML IV STA (09:37)
[2018-10-09 09:58] LABS: CLARITY,URINE CLEAR (CLEAR); COLOR,URINE YELLOW (YELLOW)
[2018-10-09 09:59] LABS: BILIRUBIN,URINE NEGATIVE (NEGATIVE); KETONES,URINE NEGATIVE (NEGATIVE); LEUKOCYTE ESTERASE ,URINE NEGATIVE (NEGATIVE); NITRITE,URINE NEGATIVE (NEGATIVE); PROTEIN,URINE DIPSTICK TRACE (NEGATIVE); URINE UROBILINOGEN 1 mg/dL (0.2 - 1)
[2018-10-09 10:15] LABS: WBC,URINE (MAN) 0-5 /HPF (0-5)
[2018-10-09 10:16] LABS: BACTERIA,URINE FEW /HPF; EPITHELIAL CELLS,URINE FEW /LPF; RBC,URINE 0-5 /HPF (0-5)
[2018-10-09 10:23] LABS: BASOPHILS % 0.5 % (0.0-1.0); EOSINOPHILS # (AUTO) 0.1 (0.0-0.4); EOSINOPHILS % 0.7 % (0.0-6.0); HEMOGLOBIN 12.6 g/dL (14.0-18.0); LYMPHOCYTES # (AUTO) 1.3 (1.0-3.2); LYMPHOCYTES % 15.4 % (18.0-39.1); MEAN CORPUSCULAR HGB CONC 33.2 g/dL (31-35); MEAN CORPUSCULAR VOLUME 96.4 fL (81-99); MONOCYTES # (AUTO) 0.8 (0.2-0.8); MONOCYTES % 9.3 % (4.4-11.3); NEUTROPHILS # (AUTO) 6.1 (2.1-6.9); NEUTROPHILS % 73.9 % (38.7-80.0); PLATELET COUNT 208 x10e3/uL (140-360); RED BLOOD COUNT 3.94 x10e6/uL (4.3-5.7)
--- NOTE | 2018-10-09 10:28 | Diagnostic Imaging Report ---
EXAM: CT Abdomen and Pelvis WITHOUT contrast INDICATION: Right-sided abdominal pain ^Stone Protocol ^[id number] ^0930 ^Y COMPARISON: CT dated 07/17/2017 and MRI dated 07/18/2017 TECHNIQUE: Abdomen and pelvis were scanned utilizing a multidetector helical scanner from the lung base to the pubic symphysis without administration of IV contrast. Absence of intravenous contrast decreases sensitivity for detection of focal lesions and vascular pathology. Coronal and sagittal reformations were obtained. Routine protocol was performed. IV CONTRAST: None ORAL CONTRAST: Water COMPLICATIONS: None RADIATION DOSE: Total DLP: 391.51 mGy*cm Estimated effective dose: (DLP x 0.015 x size factor) mSv CTDIvol has been reviewed. It is below the limits set by the Radiation Protocol Committee (RPC). FINDINGS: LINES and TUBES: None. LOWER THORAX: Unremarkable HEPATOBILIARY: Ill-defined hypodense inferior right hepatic lobe lesion measures approximately 1.4 cm. Otherwise, unenhanced liver is unremarkable. No biliary ductal dilation. GALLBLADDER: Surgically absent. SPLEEN: No splenomegaly. PANCREAS: No ductal dilatation. Partially calcified pancreatic head/uncinate process mass is again seen, measuring approximately 5.7 x 4.1 cm (series 3, image 72). ADRENALS: No adrenal nodules KIDNEYS/URETERS: No hydronephrosis. Limited for evaluation of renal parenchyma without intravenous contrast. Left renal cysts are again seen. No stones. GI TRACT: No abnormal distention, wall thickening, or evidence of bowel obstruction. There are diverticula within the colon without evidence of diverticulitis. Appendix is not visualized. Small hiatal hernia. PELVIC ORGANS/BLADDER: Enlarged prostate gland. Bladder is under distended, demonstrating wall thickening. LYMPH NODES: No lymphadenopathy. VESSELS: There is mild atherosclerotic disease in the aorta and major arterial branches. PERITONEUM / RETROPERITONEUM: No free air or fluid. BONES: Degenerative changes of spine. SOFT TISSUES: Small fat-containing supraumbilical hernia. IMPRESSION: 1. No nephrolithiasis or evidence of obstructive urolithiasis. 2. Redemonstration of pancreatic uncinate process partially calcified mass which is inseparable from third portion of duodenum. 3. Ill-defined inferior right hepatic lobe hypodensity is too small and cannot be characterized on this unenhanced study. However it appears more conspicuous when compared to CT dated 07/17/2017. Nonurgent liver mass protocol MRI can be obtained for further evaluation. 4. Prostatomegaly. Signed by: Dr. Jairo Galarza MD on 10/09/2018 10:25 AM
[2018-10-09 10:30] LABS: INR 0.99; PROTHROMBIN TIME 13.6 seconds (11.9-14.5)
[2018-10-09] MEDS ORDERED: KETOROLAC TROMETHAMINE 30 MG/ML VIAL IV ONE (10:30)
[2018-10-09 10:31] LABS: PARTIAL THROMBOPLASTIN TIME 26.8 seconds (23.8-35.5)
[2018-10-09 10:42] LABS: ALANINE AMINOTRANSFERASE 13 IU/L (0-55); ALBUMIN 3.9 g/dL (3.5-5.0); ALBUMIN/GLOBULIN RATIO 1.4 (0.8-2.0); ALKALINE PHOSPHATASE 43 IU/L (40-150); ANION GAP 13.2 mmol/L (8-16); BLOOD UREA NITROGEN 14 mg/dL (7-26); BUN/CREATININE RATIO 15 (6-25); CALCIUM 8.8 mg/dL (8.4-10.2); CARBON DIOXIDE 26 mmol/L (22-29); CHLORIDE 103 mmol/L (98-107); CREATINE KINASE 69 IU/L (30-200); CREATININE, SERUM 0.92 mg/dL (0.72-1.25); EST GLOMERULAR FILTRATION RATE > 60 ML/MIN (60-); GLUCOSE 184 mg/dL (74-118); LIPASE 26 U/L (8-78); MAGNESIUM 1.7 MG/DL (1.3-2.1); POTASSIUM 3.2 mmol/L (3.5-5.1); SODIUM 139 mmol/L (136-145)
[2018-10-09 11:22] VITALS: BP 173/86
[2018-10-09] MEDS ORDERED: POTASSIUM CHLORIDE 20 MEQ TAB CR PO ONE (11:30)
== END 2018-10-09 11:27 | disposition home or self-care (01) ==
LOC: ER 09:08
DX: M54.5 Low back pain (principal); S39.012A Strain of muscle, fascia and tendon of lower back, initial encounter; I10 Essential (primary) hypertension; E11.9 Type 2 diabetes mellitus without complications
CPT/HCPCS: 36415; 74176; 80053; 81001; 82550; 82553; 83690; 83735; 84484; 85025; 85610; 85730; 87086; 99284; J1885; J7030

== ENCOUNTER 2018-11-12 06:55 | Emergency (ER) | payer MEDICARE ==
[~2018-11-12] VITALS: Ht 167.6 cm; Wt 81.2 kg
[2018-11-12 07:59] LABS: BASOPHILS % 0.4 % (0.0-1.0); EOSINOPHILS % 0.3 % (0.0-6.0); HEMATOCRIT 36.9 % (38.2-49.6); HEMOGLOBIN 12.1 g/dL (14.0-18.0); LYMPHOCYTES # (AUTO) 1.3 (1.0-3.2); LYMPHOCYTES % 17.5 % (18.0-39.1); MEAN CORPUSCULAR HEMOGLOBIN 31.9 pg (28-32); MEAN CORPUSCULAR HGB CONC 32.8 g/dL (31-35); MEAN CORPUSCULAR VOLUME 97.4 fL (81-99); MONOCYTES # (AUTO) 0.6 (0.2-0.8); MONOCYTES % 7.9 % (4.4-11.3); NEUTROPHILS # (AUTO) 5.4 (2.1-6.9); NEUTROPHILS % 73.8 % (38.7-80.0); PLATELET COUNT 183 x10e3/uL (140-360); RED BLOOD COUNT 3.79 x10e6/uL (4.3-5.7); RED CELL DISTRIBUTION WIDTH 13.3 % (11.7-14.4)
[2018-11-12 08:18] LABS: ALANINE AMINOTRANSFERASE 12 IU/L (0-55); ALBUMIN 4.1 g/dL (3.5-5.0); ALBUMIN/GLOBULIN RATIO 1.5 (0.8-2.0); ALKALINE PHOSPHATASE 39 IU/L (40-150); ANION GAP 15.2 mmol/L (8-16); BLOOD UREA NITROGEN 20 mg/dL (7-26); BUN/CREATININE RATIO 19 (6-25); CALCIUM 9.3 mg/dL (8.4-10.2); CARBON DIOXIDE 22 mmol/L (22-29); CHLORIDE 106 mmol/L (98-107); CREATININE, SERUM 1.07 mg/dL (0.72-1.25); EST GLOMERULAR FILTRATION RATE > 60 ML/MIN (60-); POTASSIUM 4.2 mmol/L (3.5-5.1); SODIUM 139 mmol/L (136-145)
[2018-11-12 08:24] LABS: GLUCOSE 191 mg/dL (74-118)
[2018-11-12] MEDS ORDERED: AMITIZA24 MCG PO (08:50)
[2018-11-12 09:28] LABS: CLARITY,URINE SL CLOUDY (CLEAR); COLOR,URINE YELLOW (YELLOW)
[2018-11-12 09:29] LABS: KETONES,URINE TRACE (NEGATIVE)
[2018-11-12 09:30] LABS: BILIRUBIN,URINE NEGATIVE (NEGATIVE); LEUKOCYTE ESTERASE ,URINE NEGATIVE (NEGATIVE); NITRITE,URINE NEGATIVE (NEGATIVE); PROTEIN,URINE DIPSTICK NEGATIVE (NEGATIVE); URINE UROBILINOGEN 1 mg/dL (0.2 - 1)
[2018-11-12] MEDS ORDERED: HYDRALAZINE HCL 20 MG/ML VIAL IV ONE (10:00)
[2018-11-12] MEDS ORDERED: KETOROLAC TROMETHAMINE 30 MG/ML VIAL IV ONE (10:30)
--- NOTE | 2018-11-12 11:58 | Diagnostic Imaging Report ---
EXAM: ABDOMEN-1VIEW (KUB) DATE: 11/12/2018 8:44 AM INDICATION: Hernia COMPARISON: CT abdomen/pelvis, 10/09/2018 FINDINGS: Supine views of the abdomen show a normal distribution of air in the small and large bowel. No specific abnormal soft tissue calcifications. Cholecystectomy clips are noted. No acute bony abnormality. Degenerative changes in the lumbar spine. Scattered vascular calcifications are seen. IMPRESSION: No evidence for bowel dilatation or bowel obstruction. Signed by: Dr. Kadeem Hoffman M.D. on 11/12/2018 11:54 AM
[2018-11-12 12:34] LABS: BACTERIA,URINE RARE /HPF; EPITHELIAL CELLS,URINE RARE /LPF
== END 2018-11-12 14:21 | disposition home or self-care (01) ==
LOC: ER 06:55
DX: K42.9 Umbilical hernia without obstruction or gangrene (principal); R10.13 Epigastric pain; I10 Essential (primary) hypertension; E11.9 Type 2 diabetes mellitus without complications; E78.5 Hyperlipidemia, unspecified; Z79.84 Long term (current) use of oral hypoglycemic drugs; Z79.82 Long term (current) use of aspirin
CPT/HCPCS: 36415; 74018; 80053; 81001; 85025; 99284; J0360; J1885

== ENCOUNTER → 2019-09-29 | Emergency (ER) | payer MEDICARE ==
[~2019-09-29] VITALS: Ht 167.6 cm; Wt 81.2 kg
[~2019-09-29] MED LIST changes: +DEXAMETHASONE SOD PHOS INJ 4 MG/ML VIAL IM ONE; +DIAZEPAM 2 MG TAB PO ONE; +HYDRALAZINE HCL 25 MG TAB ONE; +HYDRALAZINE HCL 25 MG TAB PO ONE; +KETOROLAC TROMETHAMINE 60 MG/2 ML VIAL IM ONE; +SODIUM CHLORIDE 0.9% 50ML 0 ML ONE
--- NOTE | 2019-09-29 12:06 | Diagnostic Imaging Report ---
History: Neck pain Comparison studies: None. Technique: Axial images were obtained through the cervical region. Coronal and sagittal images reconstructed from the axial data. Dose modulation, iterative reconstruction, and/or weight based adjustment of the mA/kV was utilized to reduce the radiation dose to as low as reasonably achievable. Intravenous contrast: None Findings: Atlantoaxial articulation: Intact Alignment: Normal lordosis. No subluxations. Cervicomedullary junction: No abnormalities. Patent foramen magnum. Soft tissues: No gross acute abnormalities. Incidental scattered calcified atherosclerosis with calcified plaque in the bilateral carotid bulbs. Vertebrae: No fractures, neoplasm or infection. Degenerative changes: C1-C2: Degenerative changes with enthesophyte formation at the tip of the dens and anterior C1 arch and ligamentous calcification posterior to the dens. C2-C3: Moderate right facet arthrosis. No significant canal or foraminal stenosis. C3-C4: Moderate bilateral facet arthrosis and right uncovertebral arthrosis result in moderate right foraminal stenosis. No significant canal or left foraminal stenosis. C4-C5: Small disc bulge indents the thecal sac but does not result significant canal stenosis. Severe left and moderate right facet arthrosis and left uncovertebral arthrosis with moderate left foraminal stenosis. No significant right foraminal stenosis. C5-C6: Moderately degenerated disc with loss of disc height. Mild canal stenosis due to a disc osteophyte complex. Severe left and moderate right foraminal stenosis due to uncovertebral arthrosis and severe bilateral facet arthrosis. C6-C7: Mildly degenerated disc. No significant canal stenosis. Moderate bilateral foraminal stenosis due to uncovertebral arthrosis and severe left facet arthrosis. C7-T1: Severe left and mild right facet arthrosis. No significant canal or foraminal stenosis. IMPRESSION: 1. Moderately degenerated C5-C6 disc. 2. 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 3. Advanced multilevel facet arthrosis. 4. No significant canal stenosis. Signed by: Dr. Jose Rodriguez M.D. on 09/29/2019 12:04 PM
--- NOTE | 2019-09-29 14:16 | NUR ---
pt bp on recheck p 74 pt advised by shannan young that he would need to stay longer to have bp treated; pt states he wants to go home and will take his bp meds at home; Mitesh advises pt on benefits of staying and what could happen if he leaves up to and including ; pt states he understands and wants to go home anyways
[2019-09-29 14:18] VITALS: BP 225/91
== END | disposition home or self-care (01) ==
LOC: ER 09:27
DX: M54.2 Cervicalgia (principal); Y93.84 Activity, sleeping; Y92.003 Bedroom of unspecified non-institutional (private) residence as the place of occurrence of the external cause; I10 Essential (primary) hypertension; E11.9 Type 2 diabetes mellitus without complications; E78.5 Hyperlipidemia, unspecified
CPT/HCPCS: 72125; 99283; J1100; J1885

== ENCOUNTER 2020-06-22 01:47 | Emergency (ER) | payer MEDICARE ==
[~2020-06-22] VITALS: Ht 167.6 cm; Wt 81.2 kg
[~2020-06-22 01:47] MED LIST changes: -DEXAMETHASONE SOD PHOS INJ 4 MG/ML VIAL IM ONE; -DIAZEPAM 2 MG TAB PO ONE; -HYDRALAZINE HCL 25 MG TAB ONE; -HYDRALAZINE HCL 25 MG TAB PO ONE; -KETOROLAC TROMETHAMINE 60 MG/2 ML VIAL IM ONE; -SODIUM CHLORIDE 0.9% 50ML 0 ML ONE
[2020-06-22] MEDS ORDERED: ONDANSETRON HCL INJ 2MG/ML 2ML 2 MG/ML VIAL IV STA (01:58)
[2020-06-22] MEDS ORDERED: KETOROLAC TROMETHAMINE 30 MG/ML VIAL IV ONE (02:00)
[2020-06-22 02:03] LABS: BASOPHILS % 0.7 % (0.0-1.0); EOSINOPHILS % 0.2 % (0.0-6.0); HEMATOCRIT 37.5 % (38.2-49.6); HEMOGLOBIN 12.2 g/dL (14.0-18.0); LYMPHOCYTES # (AUTO) 1.4 (1.0-3.2); LYMPHOCYTES % 22.6 % (18.0-39.1); MEAN CORPUSCULAR HEMOGLOBIN 30.8 pg (28-32); MEAN CORPUSCULAR HGB CONC 32.5 g/dL (31-35); MEAN CORPUSCULAR VOLUME 94.7 fL (81-99); MONOCYTES # (AUTO) 0.4 (0.2-0.8); MONOCYTES % 7.2 % (4.4-11.3); NEUTROPHILS # (AUTO) 4.1 (2.1-6.9); PLATELET COUNT 235 x10e3/uL (140-360); RED BLOOD COUNT 3.96 x10e6/uL (4.3-5.7)
--- OUTSIDE RECORDS SUMMARY | 2020-06-22 02:03 | XMS REPORT | Continuity of Care Document ---
Author Author [facility] t Organization [facility] Address [address] [place] [address] Phone Unavailable Care Team Providers Care Central Supply Nurse Name Role Phone MARY BLANCO MD PCP Dominga SANCHEZ Attphys Unavailable MORA, S AMBICA Attphys Unavailable THIEN DODD Attphys Unavailable THIEN DODD Admphyheather Unavailable Payers Payer Name Policy Type Policy Number Effective Date Expiration Date Heather chadwick [employer] [facility] [id number] 2018 00:00:00 [facility] [id number] 2018 00:00:00 [facility] Problems Condition Name Condition Details Condition Category Status Onset Date Resolution Date Last Treatment Date Treating Clinician Comments Source Abdominal pain Abdominal pain Problem Active [facility] Pancreatic mass Pancreatic mass Problem Active [facility] Allergies, Adverse Reactions, Alerts This patient has no known allergies or adverse reactions. Medications Ordered Medication Name Filled Medication Name Start Date Stop Da te Current Medication? Ordering Clinician Indication Dosage Frequency Signature (SIG) Comments Components Source Pantoprazole Sodium (Protonix) 40 Mg Suspdr.pkt Pantop razole Sodium (Protonix) 40 Mg Suspdr.pkt 2017-07-21 00:00:00 Yes Thien Dodd Md 40 Daily [facility] Levofloxacin (Levaquin) 500 Mg Tablet, 500 Mg Oral Lev ofloxacin (Levaquin) 500 Mg Tablet, 500 Mg Oral 2017-07-21 00:00:00 2018-11-12 00:00:00 No Tej Dodd Md 500 Daily [facility] Metronidazole (Flagyl) 500 Mg Tablet, 500 Mg Oral Metr onidazole (Flagyl) 500 Mg Tablet, 500 Mg Oral 2017-07-21 00:00:00 2018-11-12 00:00:00 No Thien davenport Md 500 Three Times A Day [facility] Aspirin (Aspirin Ec) 81 Mg Tablet. Aspirin (Aspirin Ec) 81 Mg Tab let.dr Yes 81 Daily [facility] Fenofibrate Nanocrystallized (Tricor) 145 Mg Tablet Fe nofibrate Nanocrystallized (Tricor) 145 Mg Tablet Yes 145 Daily [facility] Glimepiride 2 Mg Tablet Glimepiride 2 Mg Tablet Yes 2 Daily [facility] Hydralazine Hcl 25 Mg Tab Hydralazine Hcl 25 Mg Tab Yes 50 Twice A Day [facility] Losartan/Hydrochlorothiazide (Losartan-Hctz 50-12.5 Mg Tab) 1 Each Tablet Losartan/Hydrochlorothiazide (Losartan-Hctz 50-12.5 Mg Tab) 1 Each Tablet Yes 1 Daily [facility] Lubiprostone (Amitiza) 24 Mcg Capsule Lubiprostone (Amitiza) 24 Mcg Capsule Yes 24 Daily [facility] Nateglinide 120 Mg Tablet Nateglinide 120 Mg Tablet Yes 120 Three Times Daily With Meals [facility] Ondansetron (Zofran Odt) 4 Mg Tab.rapdis Ondansetron ( Zofran Odt) 4 Mg Tab.rapdis Yes 4 Every 6 Hours C [facility] Amlodipine Besylate 10 Mg Tablet, 10 Mg Oral Amlodipin e Besylate 10 Mg Tablet, 10 Mg Oral 2018-11-12 00:00:00 No 10 Daily [facility] Prunelax , Prunelax , 2018-11-12 00:00:00 No [facility] Glyburide 5 Mg Tablet, 5 Mg Oral Glyburide 5 Mg Tablet, 5 Mg Ora l 2017-07-17 00:00:00 No 5 Twice A Day [facility] Hydrocodone Bit/Acetaminophen* (Vicodin 5-500 Tablet*) 1 Each Tablet, 1 - 2 Tab Oral Hydrocodone Bit/Acetaminophen* (Vicodin 5-500 Tablet*) 1 Each Tablet, 1 - 2 Tab Oral 2017-07-17 00:00:00 No Every 4-6 Hours as needed [facility] Lisinopril/Hydrochlorothiazide (Lisinopr il-Hctz 20-12.5 Mg Tab) 1 Each Tablet, 20 - 25 Mg Oral Lisinopril/Hydrochlorothiazide (Lisinopr il-Hctz 20-12.5 Mg Tab) 1 Each Tablet, 20 - 25 Mg Oral 2017-07-17 00:00:00 No Daily [facility] Lubiprostone (Amitiza) 24 Mcg Capsule, 1 Mcg Oral Lubi prostone (Amitiza) 24 Mcg Capsule, 1 Mcg Oral 2017-07-17 00:00:00 No 1 Zhang y [facility] Procedures Procedure Date / Time Performed Performing Clinician [facility] e CT of abdomen and pelvis without contrast 2018-10-09 00:00:00 JAVIER TRAN [facility] Encounters Start Date/Time End Date/Time Encounter Type Admission Type Attendi [facility] Care Department Encounter ID Source 2018-11-12 06:55:00 2018-11-12 14:21:00 Departed Emergency Room 1 ARJUN VELAZCO [facility] [id number] [facility] 2018-10-09 09:08:00 2018-10-09 11:27:00 Departed Emergency Room 1 JAVIER SANCHEZ [facility] [id number] [facility] Results Test Description Test Time Test Comments Results Result Comments Source CT CERVICAL SPINE WO 2019-09-29 11:55:00 [facility] [address] [address] Patient Name: PRIYA PAULINO MR #: [id number] : 1935 Age/Sex: 84/M Req #: [id number] Adm Physician: Ordered by: ALEC SIMS COSMETOLOGY TEACHER Report #: [id number] Location: ER Room/Bed: Procedure: [id number] CT/CT CERVICAL SPINE WO Exam Date: Exam Time: REPORT STATUS: Signed History: Neck pain Comparison studies: None. Technique: Axial images were obtained through the cervical region. Coronal and sagittal images reconstructed from the axial data. Dose modulation, iterative reconstruction, and/or weight based adjustment of the mA/kV was utilized to reduce the radiation dose to as low as reasonably achievable. Intravenous contrast: None Findings: Atlantoaxial articulation: Intact Alignment: Normal lordosis. No subluxations. Cervicomedullary junction: No abnormalities. Patent foramen magnum. Soft tissues: No gross acute abnormalities. Incidental scattered calcified atherosclerosis with calcified plaque in the bilateral carotid bulbs. Vertebrae: No fractures, neoplasm or infection. Degenerative changes: C1-C2: Degenerative changes with enthesophyte formation at the tip of the dens and anterior C1 arch and ligamentous calcification posterior to the dens. C2-C3: Moderate right facet arthrosis. No significant canal or foraminal stenosis. C3-C4: Moderate bilateral facet arthrosis and right uncovertebral arthrosis result in moderate right foraminal stenosis. No significant canal or left foraminal stenosis. C4-C5: Small disc bulge indents the thecal sac but does not result significant canal stenosis. Severe left and moderate right facet arthrosis and left uncovertebral arthrosis with moderate left foraminal stenosis. No significant right foraminal stenosis. C5-C6: Moderately degenerated disc with loss of disc height. Mild canal stenosis due to a disc osteophyte complex. Severe left and moderate right foraminal stenosis due to uncovertebral arthrosis and severe bilateral facet arthrosis. C6-C7: Mildly degenerated disc. No significant canal stenosis. Moderate bilateral foraminal stenosis due to uncovertebral arthrosis and severe left facet arthrosis. C7-T1: Severe left and mild right facet arthrosis. No significant canal or foraminal stenosis. IMPRESSION: 1. Moderately degenerated C5-C6 disc. 2. 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 3. Advanced multilevel facet arthrosis. 4. No significant canal stenosis. Signed by: Dr. Lucinda Mcqueen M.D. on 09/29/2019 12:04 PM Dictated By: LUCINDA MCQUEEN MD 03 Transcribed By: VIKY on 09/29/191203 COPY TO: ALEC SIMS COSMETOLOGY TEACHER Urine WBC 2018-11-12 12:34:00 Test Item Urine WBC (test code = 5821-4) NONE 0-5 [facility] [id number] 12:34:00* Test Item Value Reference Range Interpretation Comments Urine RBC (test code = 47837-9) NONE 0-5 [facility] Lcujorwl6051-83-25 12:34:00* Test Item Value Reference Range Interpretation Comments Urine Bacteria (test code = 30792-7) RARE NONE [facility] Epithelial Hyner5604-56-13 12:34:00 * Test Item Value Reference Range Interpretation Comments Urine Epithelial Cells (test code = 36752-5) RARE NONE [facility]2018-11-12 11:52:[address] [address] Patient Name: PRIYA PAULINO MR #: [id number] : 1935 Age/Sex: 83/M Req #: [id number] Adm Physician: Ordered by: ARJUN VELAZCO MD Report #: [id number] Location: ER Room/Bed: Procedure: [id number] DX/ABDOMEN-1VIEW (KUB) Exam Date: 11/12/18 Exam Time : 912 REPORT STATUS: Signed EXA M: ABDOMEN-1VIEW (KUB) DATE: 11/12/2018 8:44 AM INDICATION: Hernia COMPARISON: CT abdomen/pelvis, 10/09/2018 FINDINGS: Supine views of the abdomen show a normal distribution of air in the small and large bowel. No specific abnormal soft tissue calcifications. Cholecystectomy clips are noted. No acute bony abnormality. Degenerative changes in the lumbar spine. Sca ttered vascular calcifications are seen. IMPRESSION: No evidence for spenser wel dilatation or bowel obstruction. Signed by: Dr. Kadeem Hoffman M.D. on 11/12/2018 11:54 AM Dictated By: KADEEM HOFFMAN MD 53 Transcribed By: VIKY on 11/12/184 COPY TO: ARJUN VELAZCO MD Urine Evbgv1128-43-33 09:30:00* Test Item Value Reference Range Interpretation Comments Urine Color (test code = 5778-6) YELLOW YELLOW [facility] Qlcdqlw6883-01-90 09:30:00* Test Item Value Reference Range Interpretation Comments Urine Clarity (test code = 27459-5) SL CLOUDY CLEAR H [facility] Specific Ydyjval5309-84-73 09:30:00 * Test Item Value Reference Range Interpretation Comments Urine Specific [place] (test code = 5811-5) 1.030 1.010-1.02 5 H [facility] hB3504-93-90 09:30:00* Test Item Value Reference Range Interpretation Comments Urine pH (test code = 94870-4) 6 5-7 [facility] Leukocyte Gdsjwmvf3098-77-66 09:30:00* Test Item Value Reference Range Interpretation Comments Urine Leukocyte Esterase (test code = 5799-2) NEGATIVE NEGATIVE [facility] Yyfhamo1857-60-35 09:30:00* Test Item Value Reference Range Interpretation Comments Urine Nitrite (test code = 92883-2) NEGATIVE NEGATIVE [facility] Uppzccs1629-35-55 09:30:00* Test Item Value Reference Range Interpretation Comments Urine Protein (test code = 5804-0) NEGATIVE NEGATIVE [facility] Glucose (UA)2018-11-12 09:30:00* Test Item Value Reference Range Interpretation Comments Urine Glucose (UA) (test code = 2349-9) NEGATIVE NEGATIVE [facility] Ypnsyhl1378-61-66 09:30:00* Test Item Value Reference Range Interpretation Comments Urine Ketones (test code = 64208-0) TRACE NEGATIVE H [facility] Bzqohlewivds7865-33-44 09:30:00* Test Item Value Reference Range Interpretation Comments Urine Urobilinogen (test code = 43638-7) 1 0.2-1 [facility] Splucphud8801-21-29 09:30:00* Test Item Value Reference Range Interpretation Comments Urine Bilirubin (test code = 1978-6) NEGATIVE NEGATIVE [facility] Vvheo0881-53-39 09:30:00* Test Item Value Reference Range Interpretation Comments Urine Blood (test code = 62547-4) TRACE NEGATIVE H [facility]Glucose Zpnht5322-33-67 08:27:00* Test Item Value Reference Range Interpretation Comments Glucose Level (test code = PJZ5312) 191 74-118 H [facility] Wecyp0163-18-80 08:19:00* Test Item Value Reference Range Interpretation Comments Sodium Level (test code = 2951-2) 139 136-145 [facility]Potassium Yhaut9519-70-95 08:19:00* Test Item Value Reference Range Interpretation Comments Potassium Level (test code = 2823-3) 4.2 3.5-5.1 [facility] AllenChloride Peqlm6513-16-19 08:19:00* Test Item Value Reference Range Interpretation Comments Chloride Level (test code = 2075-0) 106 98-107 [facility] AllenCarbon Dioxide Ojzeh3103-46-46 08:19:00* Test Item Value Reference Range Interpretation Comments Carbon Dioxide Level (test code = 2028-9) 22 22-29 [facility] AllenAnion Qrc6151-65-59 08:19:00* Test Item Value Reference Range Interpretation Comments Anion Gap (test code = 81311-5) 15.2 8-16 [facility] Urea Zkvppayx8622-00-81 08:19:00* Test Item Value Reference Range Interpretation Comments Blood Urea Nitrogen (test code = 3094-0) 20 7-26 [facility] AllenCreatinine2019-04-19 08:19:00* Test Item Value Reference Range Interpretation Comments Creatinine (test code = 2160-0) 1.07 0.72-1.25 [facility]BUN/Creatinine Yhxwl3744-61-88 08:19:00* Test Item Value Reference Range Interpretation Comments BUN/Creatinine Ratio (test code = 3097-3) 19 6-25 [facility]Estimat Glomerular Filtration Rate 2018-11-12 08:19:00* Test Item Value Reference Range Interpretation Comments Estimat Glomerular Filtration Rate (test code = 817570484) > 60 >60 Ranges were taken from the National Kidney Disease Education Program and the [facility] [employer] literature.Reference ranges:60 or greater: Qihqyh29-53 ( for 3 consecutive months): Chronic kidney disease 15 or less: Kidney failureTexas Health AllenCalcium Mtzvd3535-48-75 08:19:00* Test Item Value Reference Range Interpretation Comments Calcium Level (test code = 27740-8) 9.3 8.4-10.2 [facility] Xlthmtzle9377-58-56 08:19:00* Test Item Value Reference Range Interpretation Comments Total Bilirubin (test code = 1975-2) 0.7 0.2-1.2 [facility] AllenAspartate Amino Transf (AST/SGOT) 2018-11-12 08:19:00* Test Item Value Reference Range Interpretation Comments Aspartate Amino Transf (AST/SGOT) (test code = Aspartate Amino Transf (AST/SGOT)) 18 5-34 [facility] AllenAlanine Aminotransferase (ALT/SGPT) 2018-11-12 08:19:00* Test Item Value Reference Range Interpretation Comments Alanine Aminotransferase (ALT/SGPT) (test code = 1742-6) 12 0-55 [facility]Total Llnufit9333-84-00 08:19:00* Test Item Value Reference Range Interpretation Comments Total Protein (test code = 2885-2) 6.8 6.5-8.1 [facility] AllenAlbumin2019-04-19 08:19:00* Test Item Value Reference Range Interpretation Comments Albumin (test code = 1751-7) 4.1 3.5-5.0 [facility] AllenGlobulin2019-04-19 08:19:00* Test Item Value Reference Range Interpretation Comments Globulin (test code = 43444-5) 2.7 2.3-3.5 [facility] AllenAlbumin/Globulin Bhpxb1018-45-03 08:19:00 * Test Item Value Reference Range Interpretation Comments Albumin/Globulin Ratio (test code = 1759-0) 1.5 0.8-2.0 [facility] AllenAlkaline Unfnsgzgtxi7370-56-16 08:19:00* Test Item Value Reference Range Interpretation Comments Alkaline Phosphatase (test code = 6768-6) 39 40-150 L [facility] AllenWhite Blood Wxswh3502-67-42 08:03:00* Test Item Value Reference Range Interpretation Comments White Blood Count (test code = 6690-2) 7.36 4.8-10.8 [facility] AllenRed Blood Dvmjp4205-85-46 08:03:00* Test Item Value Reference Range Interpretation Comments Red Blood Count (test code = 789-8) 3.79 4.3-5.7 L [facility] AllenHemoglobin2019-04-19 08:03:00* Test Item Value Reference Range Interpretation Comments Hemoglobin (test code = 22146-9) 12.1 14.0-18.0 L [facility]Hematocrit2019-04-19 08:03:00* Test Item Value Reference Range Interpretation Comments Hematocrit (test code = 4544-3) 36.9 38.2-49.6 L [facility] AllenMean Corpuscular Noezui5990-18-25 08:03:00* Test Item Value Reference Range Interpretation Comments Mean Corpuscular Volume (test code = 787-2) 97.4 81-99 [facility] AllenMean Corpuscular Ylgvutkucz1946-18-41 08:03:00* Test Item Value Reference Range Interpretation Comments Mean Corpuscular Hemoglobin (test code = 785-6) 31.9 28-32 [facility] AllenMean Corpuscular Hemoglobin Concent 2018-11-12 08:03:00* Test Item Value Reference Range Interpretation Comments Mean Corpuscular Hemoglobin Concent (test code = 786-4) 32.8 31-35 [facility] AllenRed Cell Distribution Ninab0471-93-57 08:03:00* Test Item Value Reference Range Interpretation Comments Red Cell Distribution Width (test code = 90286-9) 13.3 11.7 -14.4 [facility] AllenPlatelet Uhkli8233-05-87 08:03:00* Test Item Value Reference Range Interpretation Comments Platelet Count (test code = 777-3) 183 140-360 [facility] AllenNeutrophils (%) (Auto)2018-11-12 08:03:00 * Test Item Value Reference Range Interpretation Comments Neutrophils (%) (Auto) (test code = 81193-0) 73.8 38.7-80.0 [facility] AllenLymphocytes (%) (Auto)2018-11-12 08:03:00 * Test Item Value Reference Range Interpretation Comments Lymphocytes (%) (Auto) (test code = 736-9) 17.5 18.0-39.1 L [facility] AllenMonocytes (%) (Auto)2018-11-12 08:03:00* Test Item Value Reference Range Interpretation Comments Monocytes (%) (Auto) (test code = 5905-5) 7.9 4.4-11.3 [facility] AllenEosinophils (%) (Auto)2018-11-12 08:03:00 * Test Item Value Reference Range Interpretation Comments Eosinophils (%) (Auto) (test code = 713-8) 0.3 0.0-6.0 [facility] AllenBasophils (%) (Auto)2018-11-12 08:03:00* Test Item Value Reference Range Interpretation Comments Basophils (%) (Auto) (test code = 706-2) 0.4 0.0-1.0 [facility] AllenIM GRANULOCYTES %2018-11-12 08:03:00* Test Item Value Reference Range Interpretation Comments IM GRANULOCYTES % (test code = IM GRANULOCYTES %) 0.1 0.0- 1.0 [facility] AllenNeutrophils # (Auto)2018-11-12 08:03:00* Test Item Value Reference Range Interpretation Comments Neutrophils # (Auto) (test code = 751-8) 5.4 2.1-6.9 [facility] AllenLymphocytes # (Auto)2018-11-12 08:03:00* Test Item Value Reference Range Interpretation Comments Lymphocytes # (Auto) (test code = 02118-6) 1.3 1.0-3.2 [facility] AllenMonocytes # (Auto)2018-11-12 08:03:00* Test Item Value Reference Range Interpretation Comments Monocytes # (Auto) (test code = 742-7) 0.6 0.2-0.8 [facility] AllenEosinophils # (Auto)2018-11-12 08:03:00* Test Item Value Reference Range Interpretation Comments Eosinophils # (Auto) (test code = 711-2) 0.0 0.0-0.4 [facility]Basophils # (Auto)2018-11-12 08:03:00* Test Item Value Reference Range Interpretation Comments Basophils # (Auto) (test code = 704-7) 0.0 0.0-0.1 [facility] AllenAbsolute Immature Granulocyte (auto 2018-11-12 08:03:00* Test Item Value Reference Range Interpretation Comments Absolute Immature Granulocyte (auto (mayito t code = Absolute Immature Granulocyte (auto) 0.01 0-0.1 [facility]odium Dotrn2820-35-31 10:51:00* Test Item Value Reference Range Interpretation Comments Sodium Level (test code = 2951-2) 139 136-145 [facility]Potassium Kfzsn6424-65-90 10:51:00* Test Item Value Reference Range Interpretation Comments Potassium Level (test code = 2823-3) 3.2 3.5-5.1 L [facility] AllenChloride Gfkcx4866-87-87 10:51:00* Test Item Value Reference Range Interpretation Comments Chloride Level (test code = 2075-0) 103 98-107 [facility] AllenCarbon Dioxide Dzokh5582-75-56 10:51:00* Test Item Value Reference Range Interpretation Comments Carbon Dioxide Level (test code = 2028-9) 26 22-29 [facility] AllenAnion Vah0578-89-55 10:51:00* Test Item Value Reference Range Interpretation Comments Anion Gap (test code = 24902-5) 13.2 8-16 [facility] AllenBlood Urea Zpxmxlhu0416-44-18 10:51:00* Test Item Value Reference Range Interpretation Comments Blood Urea Nitrogen (test code = 3094-0) 14 7-26 [facility] AllenCreatinine2019-03-16 10:51:00* Test Item Value Reference Range Interpretation Comments Creatinine (test code = 2160-0) 0.92 0.72-1.25 [facility] AllenBUN/Creatinine Jemet5927-27-55 10:51:00* Test Item Value Reference Range Interpretation Comments BUN/Creatinine Ratio (test code = 3097-3) 15 6-25 [facility] AllenEstimat Glomerular Filtration Rate 2018-10-09 10:51:00* Test Item Value Reference Range Interpretation Comments Estimat Glomerular Filtration Rate (test code = 941206866) > 60 >60 Ranges were taken from the National Kidney Disease Education Program and the [facility] literature.Reference ranges:60 or greater: Djcaex24-40 ( for 3 consecutive months): Chronic kidney disease 15 or less: Kidney failureTexas Health AllenGlucose Qzofo9135-72-74 10:51:00* Test Item Value Reference Range Interpretation Comments Glucose Level (test code = SVA4130) 184 74-118 H [facility] AllenCalcium Ovrns7389-78-73 10:51:00* Test Item Value Reference Range Interpretation Comments Calcium Level (test code = 29920-8) 8.8 8.4-10.2 [facility] AllenMagnesium Nfboy1455-03-33 10:51:00* Test Item Value Reference Range Interpretation Comments Magnesium Level (test code = 03039-9) 1.7 1.3-2.1 [facility] AllenTotal Zphuqrpmr2911-08-59 10:51:00* Test Item Value Reference Range Interpretation Comments Total Bilirubin (test code = 1975-2) 0.8 0.2-1.2 [facility] AllenAspartate Amino Transf (AST/SGOT) 2018-10-09 10:51:00* Test Item Value Reference Range Interpretation Comments Aspartate Amino Transf (AST/SGOT) (test code = Aspartate Amino Transf (AST/SGOT)) 17 5-34 [facility] AllenAlanine Aminotransferase (ALT/SGPT) 2018-10-09 10:51:00* Test Item Value Reference Range Interpretation Comments Alanine Aminotransferase (ALT/SGPT) (test code = 1742-6) 13 0-55 [facility] AllenTotal Omkyxuw3673-73-92 10:51:00* Test Item Value Reference Range Interpretation Comments Total Protein (test code = 2885-2) 6.6 6.5-8.1 [facility] AllenAlbumin2019-03-16 10:51:00* Test Item Value Reference Range Interpretation Comments Albumin (test code = 1751-7) 3.9 3.5-5.0 [facility] AllenGlobulin2019-03-16 10:51:00* Test Item Value Reference Range Interpretation Comments Globulin (test code = 75985-2) 2.7 2.3-3.5 [facility] AllenAlbumin/Globulin Wyxhs0579-97-65 10:51:00 * Test Item Value Reference Range Interpretation Comments Albumin/Globulin Ratio (test code = 1759-0) 1.4 0.8-2.0 [facility] AllenAlkaline Xcvemreclsw6299-55-49 10:51:00* Test Item Value Reference Range Interpretation Comments Alkaline Phosphatase (test code = 6768-6) 43 40-150 [facility] AllenCreatine Zpdkrm6368-62-70 10:51:00* Test Item Value Reference Range Interpretation Comments Creatine Kinase (test code = 2157-6) 69 30-200 [facility] AllenCreatine Kinase BC5550-53-20 10:51:00* Test Item Value Reference Range Interpretation Comments Creatine Kinase MB (test code = 80963-7) 1.80 0-5.0 [facility] AllenTroponin Z4004-52-59 10:51:00* Test Item Value Reference Range Interpretation Comments Troponin I (test code = LEE0537) 0.015 0-0.300 [facility] AllenLipase2019-03-16 10:51:00* Test Item Value Reference Range Interpretation Comments Lipase (test code = 3040-3) [facility] AllenMagnesium Wddmu9216-15-36 10:51:00* Test Item Value Reference Range Interpretation Comments Magnesium Level (test code = 40582-7) 1.7 1.3-2.1 [facility] AllenCreatine Retdab4640-36-47 10:51:00* Test Item Value Reference Range Interpretation Comments Creatine Kinase (test code = 2157-6) 69 30-200 [facility] AllenCreatine Kinase LJ1657-49-60 10:51:00* Test Item Value Reference Range Interpretation Comments Creatine Kinase MB (test code = 96869-7) 1.80 0-5.0 [facility] AllenTroponin G3328-59-87 10:51:00* Test Item Value Reference Range Interpretation Comments Troponin I (test code = VUL9674) 0.015 0-0.300 [facility] AllenLipase2019-03-16 10:51:00* Test Item Value Reference Range Interpretation Comments Lipase (test code = 3040-3) [facility] AllenProthrombin Pwvb1470-37-10 10:35:00* Test Item Value Reference Range Interpretation Comments Prothrombin Time (test code = 5902-2) 13.6 11.9-14.5 [facility] AllenProthromb Time International Ratio 2018-10-09 10:35:00* Test Item Value Reference Range Interpretation Comments Prothromb Time International Ratio (test code = 6301-6) 0.99 Oral Anticoagulant Therapy INR Values:1. Low Intensity Therapy 1.5 - 2.02 . Moderate Intensity Therapy 2.0 - 3.03. High Intensity Therapy(1) 2.5 - 3. 54. High Intensity Therapy(2) 3.0 - 4.05. Panic Value INR > 5.0 [facility] AllenActivated Partial Thromboplast Time 2018-10-09 10:35:00* Test Item Value Reference Range Interpretation Comments Activated Partial Thromboplast Time (test code = 47984-3) 26.8 23.8-35.5 [facility] AllenProthrombin Ybpo5679-14-21 10:35:00* Test Item Value Reference Range Interpretation Comments Prothrombin Time (test code = 5902-2) 13.6 11.9-14.5 [facility] AllenProthromb Time International Ratio 2018-10-09 10:35:00* Test Item Value Reference Range Interpretation Comments Prothromb Time International Ratio (test code = 6301-6) 0.99 Oral Anticoagulant Therapy INR Values:1. Low Intensity Therapy 1.5 - 2.02 . Moderate Intensity Therapy 2.0 - 3.03. High Intensity Therapy(1) 2.5 - 3. 54. High Intensity Therapy(2) 3.0 - 4.05. Panic Value INR > 5.0 [facility] Thromboplast Time 2018-10-09 10:35:00* Test Item Value Reference Range Interpretation Comments Activated Partial Thromboplast Time (test code = 94459-6) 26.8 23.8-35.5 [facility]White Blood Wcxqu8893-14-16 10:33:00* Test Item Value Reference Range Interpretation Comments White Blood Count (test code = 6690-2) 8.26 4.8-10.8 [facility] Blood Xsiey5003-60-31 10:33:00* Test Item Value Reference Range Interpretation Comments Red Blood Count (test code = 789-8) 3.94 4.3-5.7 L [facility]Hemoglobin2019-03-16 10:33:00* Test Item Value Reference Range Interpretation Comments Hemoglobin (test code = 74157-7) 12.6 14.0-18.0 L [facility]Hematocrit2019-03-16 10:33:00* Test Item Value Reference Range Interpretation Comments Hematocrit (test code = 4544-3) 38.0 38.2-49.6 L [facility] AllenMean Corpuscular Ujmczh9838-07-37 10:33:00* Test Item Value Reference Range Interpretation Comments Mean Corpuscular Volume (test code = 787-2) 96.4 81-99 [facility]Mean Corpuscular Drkyfcnpvh4170-69-77 10:33:00* Test Item Value Reference Range Interpretation Comments Mean Corpuscular Hemoglobin (test code = 785-6) 32.0 28-32 [facility] Corpuscular Hemoglobin Concent 2018-10-09 10:33:00* Test Item Value Reference Range Interpretation Comments Mean Corpuscular Hemoglobin Concent (test code = 786-4) 33.2 31-35 [facility] Cell Distribution Xygfc2249-17-43 10:33:00* Test Item Value Reference Range Interpretation Comments Red Cell Distribution Width (test code = 62186-6) 13.0 11.7 -14.4 [facility] AllenPlatelet Vnpky6848-27-79 10:33:00* Test Item Value Reference Range Interpretation Comments Platelet Count (test code = 777-3) 208 140-360 [facility]Neutrophils (%) (Auto)2018-10-09 10:33:00 * Test Item Value Reference Range Interpretation Comments Neutrophils (%) (Auto) (test code = 09323-9) 73.9 38.7-80.0 [facility]Lymphocytes (%) (Auto)2018-10-09 10:33:00 * Test Item Value Reference Range Interpretation Comments Lymphocytes (%) (Auto) (test code = 736-9) 15.4 18.0-39.1 L [facility]Mon[facility] (%) (Auto)2018-10-09 10:33:00* Test Item Value Reference Range Interpretation Comments Monocytes (%) (Auto) (test code = 5905-5) 9.3 4.4-11.3 [facility]Eosinophils (%) (Auto)2018-10-09 10:33:00 * Test Item Value Reference Range Interpretation Comments Eosinophils (%) (Auto) (test code = 713-8) 0.7 0.0-6.0 [facility]Basophils (%) (Auto)2018-10-09 10:33:00* Test Item Value Reference Range Interpretation Comments Basophils (%) (Auto) (test code = 706-2) 0.5 0.0-1.0 [facility]IM GRANULOCYTES %2018-10-09 10:33:00* Test Item Value Reference Range Interpretation Comments IM GRANULOCYTES % (test code = IM GRANULOCYTES %) 0.2 0.0- 1.0 [facility]Neutrophils # (Auto)2018-10-09 10:33:00* Test Item Value Reference Range Interpretation Comments Neutrophils # (Auto) (test code = 751-8) 6.1 2.1-6.9 [facility] AllenLymphocytes # (Auto)2018-10-09 10:33:00* Test Item Value Reference Range Interpretation Comments Lymphocytes # (Auto) (test code = 03190-1) 1.3 1.0-3.2 [facility]Monocytes # (Auto)2018-10-09 10:33:00* Test Item Value Reference Range Interpretation Comments Monocytes # (Auto) (test code = 742-7) 0.8 0.2-0.8 [facility]Eosinophils # (Auto)2018-10-09 10:33:00* Test Item Value Reference Range Interpretation Comments Eosinophils # (Auto) (test code = 711-2) 0.1 0.0-0.4 [facility]Basophils # (Auto)2018-10-09 10:33:00* Test Item Value Reference Range Interpretation Comments Basophils # (Auto) (test code = 704-7) 0.0 0.0-0.1 [facility]Absolute Immature Granulocyte (auto 2018-10-09 10:33:00* Test Item Value Reference Range Interpretation Comments Absolute Immature Granulocyte (auto (mayito t code = Absolute Immature Granulocyte (auto) 0.02 0-0.1 [facility] AllenUrine [id number] 10:16:00* Test Item Value Reference Range Interpretation Comments Urine WBC (test code = 5821-4) 0-5 0-5 [facility] [id number] 10:16:00* Test Item Value Reference Range Interpretation Comments Urine RBC (test code = 30799-0) 0-5 0-5 [facility] Zenhysge6319-12-65 10:16:00* Test Item Value Reference Range Interpretation Comments Urine Bacteria (test code = 09179-0) FEW NONE [facility] Epithelial Wzenq8975-84-94 10:16:00 * Test Item Value Reference Range Interpretation Comments Urine Epithelial Cells (test code = 13207-6) FEW NONE [facility] AllenCT [facility]PELVIS [id number] 10:12:00 [facility] [address] [address] Patient Name: PRIYA RICE MR #: [id number] : 1935 Age/Sex: 83/M Req #: [id number] Adm Physician: Ordered by: JAVIER SANCHEZ MD Report #: [id number] Location: ER Room/Bed: Procedure: [id number] CT /CT ABDOMEN/PELVIS WO Exam Date: 10/09/18 Exam Time: 929 REPORT STATUS: Signed EXAM: CT Abdomen and Pelvis WITHOUT contrast INDICATION: Right-sided abdominal p ain Stone Protocol [id number] Y COMPARISON: CT dated 017 and MRI dated 07/18/2017 TECHNIQUE: Abdomen and pelvis were scanned utiliz ing a multidetector helical scanner from the lung base to the pubic symphysis without administration of IV contrast. Absence of intravenous contrast decreas es sensitivity for detection of focal lesions and vascular pathology. Coronal and sagittal reformations were obtained. Routine protocol was performed. IV CONTRAST: None ORAL CONTRAST: Water COMPLICATIONS: None RADIATION DOSE: Total DLP: 391.51 mGy*cm Estimated effe ctive dose: (DLP x 0.015 x size factor) mSv CTDIvol has been reviewed. It is below the limits set by the Radiation Protocol Committee (RPC). FINDI NGS: LINES and TUBES: None. LOWER THORAX: Unremarkable HEPATOBIL IARY: Ill-defined hypodense inferior right hepatic lobe lesion measures approx imately 1.4 cm. Otherwise, unenhanced liver is unremarkable. No biliary ducta l dilation. GALLBLADDER: Surgically absent. SPLEEN: No splenomegaly. PANCREAS: No ductal dilatation. Partially calcified pancreatic head/uncin ate process mass is again seen, measuring approximately 5.7 x 4.1 cm (series 3 , image 72). ADRENALS: No adrenal nodules KIDNEYS/URETERS: No h ydronephrosis. Limited for evaluation of renal parenchyma without intravenous contrast. Left renal cysts are again seen. No stones. GI TRACT: No abnorma l distention, wall thickening, or evidence of bowel obstruction. There are di verticula within the colon without evidence of diverticulitis. Appendix is no t visualized. Small hiatal hernia. PELVIC ORGANS/BLADDER: Enlarged prostate gland. Bladder is under distended, demonstrating wall thickening. LYMPH NODES: No lymphadenopathy. VESSELS: There is mild atherosclerotic disease i n the aorta and major arterial branches. PERITONEUM / RETROPERITONEUM: No free air or fluid. BONES: Degenerative changes of spine. SOFT TISSUES: Small fat-containing supraumbilical hernia. IMPRESSION: 1. No nephrolithiasis or evidence of obstructive urolithiasis. 2. Redemonstrat ion of pancreatic uncinate process partially calcified mass which is inseparab le from third portion of duodenum. 3. Ill-defined inferior right hepatic lobe hypodensity is too small and cannot be characterized on this unenhanced study. However it appears more conspicuous when compared to CT dated 07/17/2017. [facility] MRI can be obtained for further evaluation. 4. Prostatomegaly. Signed by: Dr. Jairo Rowley MD on 10/09/2018 10:25 AM Dictated By: JAIRO ROWLEY MD 1025 Transcribed By: VIKY on 10/09/18 1025 COPY TO: Macey SANCHEZ MD Urine [id number] 09:59:00* Test Item Value Reference Range Interpretation Comments Urine Color (test code = 5778-6) YELLOW YELLOW [facility] Jwnuxgp0083-09-96 09:59:00* Test Item Value Reference Range Interpretation Comments Urine Clarity (test code = 45748-6) CLEAR CLEAR [facility] Specific Rcbcovy1731-46-01 09:59:00 * Test Item Value Reference Range Interpretation Comments Urine Specific [place] (test code = 5811-5) 1.020 1.010-1.02 5 [facility] [id number] 09:59:00* Test Item Value Reference Range Interpretation Comments Urine pH (test code = 41710-5) 6.5 5-7 [facility] Leukocyte Ozubwjnq1543-88-03 09:59:00* Test Item Value Reference Range Interpretation Comments Urine Leukocyte Esterase (test code = 5799-2) NEGATIVE NEGATIVE [facility] Hgoqyfn1605-29-67 09:59:00* Test Item Value Reference Range Interpretation Comments Urine Nitrite (test code = 61490-0) NEGATIVE NEGATIVE [facility] Meyfbrt3636-08-85 09:59:00* Test Item Value Reference Range Interpretation Comments Urine Protein (test code = 5804-0) TRACE NEGATIVE H [facility] Glucose (UA)2018-10-09 09:59:00* Test Item Value Reference Range Interpretation Comments Urine Glucose (UA) (test code = 2349-9) NEGATIVE NEGATIVE [facility] Knknpcn6118-24-25 09:59:00* Test Item Value Reference Range Interpretation Comments Urine Ketones (test code = 53003-4) NEGATIVE NEGATIVE [facility] Bufmcmjytpbn7560-63-22 09:59:00* Test Item Value Reference Range Interpretation Comments Urine Urobilinogen (test code = 37744-7) 1 0.2-1 [facility] Imiqtehae8022-33-01 09:59:00* Test Item Value Reference Range Interpretation Comments Urine Bilirubin (test code = 1978-6) NEGATIVE NEGATIVE [facility] Hjzwy0764-25-97 09:59:00* Test Item Value Reference Range Interpretation Comments Urine Blood (test code = 47818-6) TRACE NEGATIVE H [facility]MRI [facility] [place] [address] Patient Name: PRIYA RICE MR #: [id number] : 1935 Age/Sex: 82/M Req #: [id number] Adm Physician: THIEN DODD MD Ordered by: JAVIER SANCHEZ MD Report #: [id number] Location: [facility] Room/Bed: [place] [address] Procedure: [id number] MRI /MRI MRCP [facility] Exam Date: 07/18/17 Exam Time: 924 REPORT STATUS: Signed EXAM: MRI MRCP [facility] DATE: 07/18/2017 12:00 AM INDICATION: Abdominal pain COMPARISON: CT dated 07/17/2017 Techniq ue: Multiplanar multisequence MRI/MRCP of the abdomen performed without and wi th contrast. Please see technologist worksheet for contrast [...] 31 mm. Signal characteristics are predominantly fluid sugges ting predominantly cystic mass. Evaluation for minimal enhancement limited by averaging. There is no dilation of the pancreatic duct. Kidneys: Bilateral cystic lesions in the kidneys are simple in appearance. Largest in the mid l eft kidney measures 42 mm in diameter. Other solid organs: Otherwise, visua lized solid organs are unremarkable. Other: No free fluid, suspicious adeno ifrah, or small bowel obstructive changes identified. The stomach is decompres sed, which limits adequate evaluation. No aortic aneurysm is identified. Visua lized marrow is unremarkable. Pelvis: Pelvis is only partially evaluated on coronal sequences. Urinary bladder is partially decompressed, limiting adequa te evaluation. IMPRESSION: Cholecystectomy changes. There is no dilation of the common duct. No distinct filling defect is identified in the common du ct. 31 x 25 mm cystic mass in the head of the pancreas. Area of calcificati on seen on CT not well evaluated with MRI. Differential considerations would i nclude serous cystadenoma, serous cystadenocarcinoma, intraductal papillary mu cinous neoplasm, or solid pseudopapillary tumor of the pancreas. Simple a ppearing renal cysts, most notably on the left. Signed by: Dr. Dorina Rutherford MD on 07/18/2017 11:09 AM Dictated By: DORINA RUTHERFORD MD Electronicall y Signed By: DORINA RUTHERFORD MD on 07/18/17 110 Transcribed By: VIKY on 06/27 10/10 1109 COPY TO: JAVIER SANCHEZ MD CT ABDOMEN/PELVIS [place] [address] Patient Name: PRIYA RICE MR #: [id number] : 1935 Age/Sex: 82/M Req #: [id number] Adm Physician: Ordered by: KOLBY FLORES Report #: [id number] Location: ER Room/B ed: Procedure: [id number] CT/CT ABDOMEN/PELVIS W Exam Date: 07/17/17 Exam Time: 3 REPORT STATUS: Signed EXAM: CT Abdomen and Pelvis WITH contrast INDICATION: COMPARISON: CT dated 04/04/2015 TECHNIQUE: Abdomen and pelvis were scanned utilizing a multidetector helical scanner from the lung base to the pubic symp hysis after administration of IV contrast. Coronal and sagittal reformations w ere obtained. Routine protocol was performed. Scan was performed when during p ortal venous phase. IV CONTRAST: 100 mL of Isovue-370 ORAL CON TRAST: Gastroview COMPLICATIONS: None RADIATION DOSE: Total DLP: 569.01 mGy*cm Estimated effective dose: (DLP x 0.015 x size factor) mSv CTDIvol has been reviewed. It is below the limits set by the Radiation Protocol Committee (RPC). FINDINGS: LINES and TUBES: None. LOWER THORAX: Unremarkable. Bibasilar subsegmental atelectasis. HEP ATOBILIARY: No focal hepatic lesions. No biliary ductal dilation. GAL LBLADDER: Surgically absent. SPLEEN: No splenomegaly. PANCREAS: Centr ally noncalcified ill-defined mass in pancreatic uncinate process, inseparable from duodenum measuring approximately 3.3 x 4.5 cm (series 2, image 36). ADRENALS: No adrenal nodules KIDNEYS/URETERS: Kidneys enhance symmet rically. No hydronephrosis. Multiple bilateral subcentimeter hypodensities wh ich are too small to characterize. 4 x 4 centimeters left midpole cyst. No st ones. GI TRACT: No abnormal distention, wall thickening, or evidence of bow el obstruction. Colonic diverticulosis without evidence of diverticulitis. Appendix is not visualized. Contrast in lower esophagus. Small hiatal hernia. PELVIC ORGANS/BLADDER: Enlarged prostate measuring 5.6 cm in transverse di ameter. Bladder is unremarkable. LYMPH NODES: No lymphadenopathy. VESS ELS: There is mild atherosclerotic disease in the aorta and major arterial bra nches. PERITONEUM / RETROPERITONEUM: No free air or fluid. BONES: Unre markable. SOFT TISSUES: Small fat-containing supraumbilical hernia. IMPRESSION: 1. No acute inflammatory process in the abdomen/pelvis. 2. Ill-defined mass in the area of pancreatic uncinate process with central calcification and some necrosis, inseparable from duodenum. This mass is not significantly changed when compared to CT dated 04/04/2015 and is probably edwina ign. If clinically indicated, this can be further characterized with pancreati c mass protocol MRI. 3. Colonic diverticulosis without evidence of diverticul itis. 4. Small hiatal hernia and evidence of gastroesophageal reflux. 5. E nlarged prostate gland. Signed by: Dr. Jairo Rowley MD on 07/17/2017 6:50 PM Dictated By: JAIRO ROWLEY MD 49 Transcribed By: VIKY on 07/17/171849 COPY TO: KOLBY FLORES CHEST SINGLE (PORTABLE) [place] [address] Patient Name: PRIYA RICE MR #: [id number] : 1935 Age/Sex: 82/M Req #: [id number] Adm Physician: Ordered by: KOLBY FLORES Report #: [id number] Location: ER Room/Bed: Procedure: [id number] DX/CHEST SINGLE (PORTABLE) Exam Date: 07/17/17 Exam Time: 1648 REPORT STAT US: Signed PROCEDURE: A single AP view of the chest. COMPARISON: 09/05 INDICATIONS: VOMITING FINDINGS: Lines/tubes: None. Lungs: Limited by body habitus and shallow inspiration. No definite focal c onsolidation. Mild left basilar subsegmental atelectasis. Pleura: There i s no significant pleural effusion or pneumothorax. Heart and mediastinum: Enlarged cardiac silhouette on this AP view. Aorta is mildly tortuous. Bones: No acute bony abnormality. IMPRESSION: Limited as above. No acute thoracic abnormality. Dictated by: Jairo Rowley M.D. on at 17:44 Electronically approved by: Jairo Rowley M.D. on at 17:44 Dictated By: JAIRO ROWLEY MD 43 Transcribed By: FAWAD on 07/17/171743 COPY TO: KOLBY LFORES
[2020-06-22 02:18] LABS: AMYLASE 24 U/L (25-125); LIPASE 13 U/L (8-78)
[2020-06-22 02:21] LABS: ALBUMIN 4.3 g/dL (3.5-5.0); ALBUMIN/GLOBULIN RATIO 1.6 (0.8-2.0); ANION GAP 17.5 mmol/L (8-16); CALCIUM 9.1 mg/dL (8.4-10.2); CREATININE, SERUM 1.25 mg/dL (0.72-1.25); POTASSIUM 3.5 mmol/L (3.5-5.1)
--- NOTE | 2020-06-22 02:52 | Diagnostic Imaging Report ---
EXAM: CT Abdomen and Pelvis WITHOUT contrast INDICATION: ^RIGHT FLANK PAIN ^[id number] ^0215 ^Y COMPARISON: CT dated 10/09/2018 TECHNIQUE: Abdomen and pelvis were scanned utilizing a multidetector helical scanner from the lung base to the pubic symphysis without administration of IV contrast. Absence of intravenous contrast decreases sensitivity for detection of focal lesions and vascular pathology. Coronal and sagittal reformations were obtained. Routine protocol was performed. IV CONTRAST: None ORAL CONTRAST: Water COMPLICATIONS: None RADIATION DOSE: Total DLP: 348.50 mGy*cm Estimated effective dose: (DLP x 0.015 x size factor) mSv CTDIvol has been reviewed. It is below the limits set by the Radiation Protocol Committee (RPC). FINDINGS: LINES and TUBES: None. LOWER THORAX: Partially seen atherosclerotic calcification of aortic valve and coronary arteries. HEPATOBILIARY: Ill-defined hypodense inferior right hepatic lobe lesion is again seen, measuring 1.7 cm, previously 1.5 cm. Otherwise, unenhanced liver is unremarkable. No biliary ductal dilation. GALLBLADDER: Surgically absent. SPLEEN: No splenomegaly. PANCREAS: No ductal dilatation. Partially calcified pancreatic head/uncinate process mass is again seen, measuring approximately 5.7 x 4.2 cm, not significantly changed. ADRENALS: No adrenal nodules KIDNEYS/URETERS: No hydronephrosis. Limited for evaluation of renal parenchyma without intravenous contrast. Left renal cysts are again seen. No stones. GI TRACT: No abnormal distention, wall thickening, or evidence of bowel obstruction. There are diverticula within the colon without evidence of diverticulitis. Appendix is not visualized. Small hiatal hernia. PELVIC ORGANS/BLADDER: Enlarged prostate gland. Bladder is under distended, demonstrating wall thickening. LYMPH NODES: No lymphadenopathy. VESSELS: There is mild atherosclerotic disease in the aorta and major arterial branches. PERITONEUM / RETROPERITONEUM: No free air or fluid. BONES: Degenerative changes of spine. SOFT TISSUES: Small fat-containing supraumbilical hernia. IMPRESSION: 1. No nephrolithiasis or evidence of obstructive urolithiasis. 2. Colonic diverticulosis without evidence of diverticulitis. 3. Redemonstration of pancreatic uncinate process partially calcified mass which is inseparable from third portion of duodenum. 4. Ill-defined inferior right hepatic lobe hypodensity has slightly increased in size when compared to prior CT. 5. Prostatomegaly. Signed by: Dr. Jairo Galarza MD on 06/22/2020 2:49 AM
[2020-06-22] MEDS ORDERED: HYDRALAZINE HCL 20 MG/ML VIAL IV STA (03:08)
--- NOTE | 2020-06-22 03:27 | Emergency Department Note ---
History of Present Illnes History of Present Illness Chief Complaint: Genitourinary History of Present Illness This is a 85 year old male C/O RT FLANK PAIN RADIATING TO RLQ WITH N/V ONSET X2 DAYS AGO; PT RATES 10/10; PT DENIES DYSURIA, HEMATURIA OR BURNING WITH URINATION; DENIES FEVER/CHILLS; . Historian: Patient, Electrical Estimator/EMS Arrival Mode: [place] Onset (how long ago): day(s) (2) Location: RIGHT FLANK Quality: PAIN Radiation: Reports abdomen Severity: moderate Onset quality: gradual Duration (how long): day(s) (2) Timing of current episode: constant Progression: unchanged Chronicity: new Context: Denies recent illness, Denies recent surgery Relieving factors: none Exacerbating factors: none Associated symptoms: Reports nausea/vomiting (REPORTED N/V) Treatments prior to arrival: none Past Medical/Family History Physician Review I have reviewed the patient's past medical and family history. Any updates have been documented here. Past Medical History Recent Fever: No Clinical Suspicion of Infectio: No New/Unexplained Change in Ment: No Past Medical History: Hypertension, Diabetes, Hyperlipedemia Other Medical History: Hyperlipidemia HTN DM Past Surgical History: Cholecysctectomy, Appendectomy Other Surgery: GB APPY Social History Smoking Cessation: Never Smoker Alcohol Use: None Any Illegal Drug Use: No Family History Family history of heart diseas: No Other family history HTN,DM Other Last Tetanus: UNK Review of Systems Review of Systems Constitutional: Reports no symptoms EENTM: Reports no symptoms Cardiovascular: Reports no symptoms Respiratory: Reports no symptoms Gastrointestinal: Reports as per HPI Genitourinary: Reports no symptoms Musculoskeletal: Reports no symptoms Integumentary: Reports no symptoms Neurological: Reports no symptoms Psychological: Reports no symptoms Endocrine: Reports no symptoms Hematological/Lymphatic: Reports no symptoms Physical Exam Related Data Allergies: Coded Allergies: No Known Allergies (Unverified , 10/09/18) Triage Vital Signs Vital Signs Date Time Temp Pulse Resp B/P (MAP) Pulse Ox O2 Delivery O2 Flow Rate FiO2 06/22/20 01:51 99.0 92 20 220/100 100 Room Air Vital signs reviewed: Yes Physical Exam CONSTITUTIONAL Constitutional: Present well-developed, Present well-nourished; Absent distressed HENT HENT: Present normocephalic, Present atraumatic, Present oropharynx clear/moist, Present nose normal HENT L/R: Present left ext ear normal, Present right ext ear normal EYES Eyes: Reports PERRL, Reports conjunctivae normal NECK Neck: Present ROM normal PULMONARY Pulmonary: Present effort normal, Present breath sounds normal CARDIOVASCULAR Cardiovascular: Present regular rhythm, Present heart sounds normal, Present capillary refill normal, Present normal rate GASTROINTESTINAL Abdominal: Present soft, Present nontender, Present bowel sounds normal; Absent right CVA tenderness GENITOURINARY Genitourinary: Present exam deferred SKIN Skin: Present warm, Present dry MUSCULOSKELETAL Musculoskeletal: Present ROM normal, Present other (MILD TENDERNESS TO RIGHT MID BACK) NEUROLOGICAL Neurological: Present alert, Present oriented x 3, Present no gross motor or sensory deficits PSYCHOLOGICAL Psychological: Present mood/affect normal, Present judgement normal Results Laboratory Result Diagram: 06/22/205 06/22/205 Laboratory Laboratory Tests Test 06/22/20 01:55 White Blood Count 5.97 x10e3/uL (4.8-10.8) Red Blood Count 3.96 x10e6/uL (4.3-5.7) Hemoglobin 12.2 g/dL (14.0-18.0) Hematocrit 37.5 % (38.2-49.6) Mean Corpuscular Volume 94.7 fL (81-99) Mean Corpuscular Hemoglobin 30.8 pg (28-32) Mean Corpuscular Hemoglobin Concent 32.5 g/dL (31-35) Red Cell Distribution Width 13.0 % (11.7-14.4) Platelet Count 235 x10e3/uL (140-360) Neutrophils (%) (Auto) 69.0 % (38.7-80.0) Lymphocytes (%) (Auto) 22.6 % (18.0-39.1) Monocytes (%) (Auto) 7.2 % (4.4-11.3) Eosinophils (%) (Auto) 0.2 % (0.0-6.0) Basophils (%) (Auto) 0.7 % (0.0-1.0) Neutrophils # (Auto) 4.1 (2.1-6.9) Lymphocytes # (Auto) 1.4 (1.0-3.2) Monocytes # (Auto) 0.4 (0.2-0.8) Eosinophils # (Auto) 0.0 (0.0-0.4) Basophils # (Auto) 0.0 (0.0-0.1) Absolute Immature Granulocyte (auto 0.02 x10e3/uL (0-0.1) Sodium Level 141 mmol/L (136-145) Potassium Level 3.5 mmol/L (3.5-5.1) Chloride Level 103 mmol/L (98-107) Carbon Dioxide Level 24 mmol/L (22-29) Anion Gap 17.5 mmol/L (8-16) Blood Urea Nitrogen 19 mg/dL (7-26) Creatinine 1.25 mg/dL (0.72-1.25) Estimat Glomerular Filtration Rate 55 ML/MIN (60-) BUN/Creatinine Ratio 15 (6-25) Glucose Level 154 mg/dL (74-118) Calcium Level 9.1 mg/dL (8.4-10.2) Total Bilirubin 0.6 mg/dL (0.2-1.2) Aspartate Amino Transf (AST/SGOT) 20 IU/L (5-34) Alanine Aminotransferase (ALT/SGPT) 16 IU/L (0-55) Alkaline Phosphatase 34 IU/L (40-150) Total Protein 7.0 g/dL (6.5-8.1) Albumin 4.3 g/dL (3.5-5.0) Globulin 2.7 g/dL (2.3-3.5) Albumin/Globulin Ratio 1.6 (0.8-2.0) Amylase Level 24 U/L (25-125) Lipase 13 U/L (8-78) Lab results reviewed: Yes Imaging Imaging results reviewed: Yes Impressions Procedure: [id number] CT/CT ABDOMEN/PELVIS WO Exam Date: 06/22/20 Exam Time: 214 REPORT STATUS: Signed EXAM: CT Abdomen and Pelvis WITHOUT contrast INDICATION: ^RIGHT FLANK PAIN ^[id number] ^0215 ^Y COMPARISON: CT dated 10/09/2018 TECHNIQUE: Abdomen and pelvis were scanned utilizing a multidetector helical scanner from the lung base to the pubic symphysis without administration of IV contrast. Absence of intravenous contrast decreases sensitivity for detection of focal lesions and vascular pathology. Coronal and sagittal reformations were obtained. Routine protocol was performed. IV CONTRAST: None ORAL CONTRAST: Water COMPLICATIONS: None RADIATION DOSE: Total DLP: 348.50 mGy*cm Estimated effective dose: (DLP x 0.015 x size factor) mSv CTDIvol has been reviewed. It is below the limits set by the Radiation Protocol Committee (RPC). FINDINGS: LINES and TUBES: None. LOWER THORAX: Partially seen atherosclerotic calcification of aortic valve and coronary arteries. HEPATOBILIARY: Ill-defined hypodense inferior right hepatic lobe lesion is again seen, measuring 1.7 cm, previously 1.5 cm. Otherwise, unenhanced liver is unremarkable. No biliary ductal dilation. GALLBLADDER: Surgically absent. SPLEEN: No splenomegaly. PANCREAS: No ductal dilatation. Partially calcified pancreatic head/uncinate process mass is again seen, measuring approximately 5.7 x 4.2 cm, not significantly changed. ADRENALS: No adrenal nodules KIDNEYS/URETERS: No hydronephrosis. Limited for evaluation of renal parenchyma without intravenous contrast. Left renal cysts are again seen. No stones. GI TRACT: No abnormal distention, wall thickening, or evidence of bowel obstruction. There are diverticula within the colon without evidence of diverticulitis. Appendix is not visualized. Small hiatal hernia. PELVIC ORGANS/BLADDER: Enlarged prostate gland. Bladder is under distended, demonstrating wall thickening. LYMPH NODES: No lymphadenopathy. VESSELS: There is mild atherosclerotic disease in the aorta and major arterial branches. PERITONEUM / RETROPERITONEUM: No free air or fluid. BONES: Degenerative changes of spine. SOFT TISSUES: Small fat-containing supraumbilical hernia. IMPRESSION: 1. No nephrolithiasis or evidence of obstructive urolithiasis. 2. Colonic diverticulosis without evidence of diverticulitis. 3. Redemonstration of pancreatic uncinate process partially calcified mass which is inseparable from third portion of duodenum. 4. Ill-defined inferior right hepatic lobe hypodensity has slightly increased in size when compared to prior CT. 5. Prostatomegaly. Signed by: Dr. Jairo Galarza MD on 06/22/2020 2:49 AM Dictated By: JAIRO GALARZA MD 8 Transcribed By: VIKY on 06/22/20248 COPY TO: ROMULO LUCERO MD~ Assessment & Plan Medical Decision Making MDM PT WITH RIGHT FLANK PAIN, pt also with elevated bp CBC, CMP, CT ABD/PELVIS, UA ORDERED TO EVAL FOR UTI, HEMATURIA, KIDNEY STONE, COLITIS, hydralazine 10 mg iv ordered for elevated blood pressure Reassessment Reassessment time: 04:28 Reassessment Date Time Temp Pulse Resp B/P (MAP) Pulse Ox O2 Delivery O2 Flow Rate FiO2 06/22/20 04:06 163/68 06/22/20 02:45 63 20 100 Room Air 06/22/20 01:51 99.0 PAIN IS IMPROVED BUT NOT GONE Assessment & Plan Final Impression: (1) Flank pain (2) Hypertensive urgency Depart Disposition: HOME, SELF-CARE Last Vital Signs Date Time Temp Pulse Resp B/P (MAP) Pulse Ox O2 Delivery O2 Flow Rate FiO2 06/22/20 02:45 63 20 198/90 100 Room Air 06/22/20 01:51 99.0 Home Meds Active Scripts Pantoprazole Sodium (PROTONIX) 40 Mg Suspdr.pkt, 40 MG PO DAILY for 30 Days Prov:KRISTY DODD MD 07/21/17 Reported Medications Lubiprostone (AMITIZA) 24 Mcg Capsule, 24 MCG PO DAILY 11/12/18 Ondansetron (ZOFRAN ODT) 4 Mg Tab.rapdis, 4 MG Q6H, TAB 07/17/17 Glimepiride (GLIMEPIRIDE) 2 Mg Tablet, 2 MG PO DAILY, TAB 07/17/17 Nateglinide (NATEGLINIDE) 120 Mg Tablet, 120 MG PO TIDWM 07/17/17 Losartan/Hydrochlorothiazide (LOSARTAN-HCTZ 50-12.5 MG TAB) 1 Each Tablet, 1 TAB PO DAILY 07/17/17 Hydralazine Hcl (HYDRALAZINE HCL) 25 Mg Tab, 50 MG PO BID, TAB 07/17/17 Aspirin (ASPIRIN EC) 81 Mg Tablet.dr, 81 MG PO DAILY, #30 TAB 07/17/17 Fenofibrate Nanocrystallized (Tricor) 145 Mg Tablet, 145 MG PO DAILY 10/10/11 Medications in the ED Ketorolac Tromethamine 15 mg ONCE ONCE IV Last administered on 06/22/20at 02:34; Admin Dose 15 MG; Start 06/22/20 at 02:00; Stop 06/22/20 at 02:06; Status DC Ondansetron HCl 4 mg NOW STAT IV Last administered on 06/22/20at 02:34; Admin Dose 4 MG; Start 06/22/20 at 01:58; Stop 06/22/20 at 02:06; Status DC Hydralazine HCl 10 mg NOW STAT IV ; Start 06/22/20 at 03:08; Stop 06/22/20 at 03:10; Status DC Tramadol HCl 50 mg ONCE ONCE PO ; Start 06/22/20 at 03:30; Stop 06/22/20 at 03:31 ROMULO LUCERO MD Jun 22, 2020 03:27
[2020-06-22] MEDS ORDERED: TRAMADOL HCL 50 MG TAB PO ONE (03:30)
[2020-06-22 03:47] LABS: BILIRUBIN,URINE NEGATIVE (NEGATIVE); CLARITY,URINE CLEAR (CLEAR); COLOR,URINE YELLOW (YELLOW); KETONES,URINE 1+ (NEGATIVE); LEUKOCYTE ESTERASE ,URINE NEGATIVE (NEGATIVE); NITRITE,URINE NEGATIVE (NEGATIVE); PROTEIN,URINE DIPSTICK NEGATIVE (NEGATIVE)
[2020-06-22 03:52] LABS: BACTERIA,URINE FEW /HPF; EPITHELIAL CELLS,URINE RARE /LPF; MUCUS,URINE RARE (RARE); WBC,URINE (MAN) 0-5 /HPF (0-5)
[2020-06-22 03:53] LABS: AMORPHOUS SEDIMENT,URINE RARE (FEW)
[2020-06-22 04:55] VITALS: BP 163/68
== END 2020-06-22 04:50 | disposition home or self-care (01) ==
LOC: ER 02:00
DX: R10.11 Right upper quadrant pain (principal); R10.31 Right lower quadrant pain; I16.0 Hypertensive urgency; E11.9 Type 2 diabetes mellitus without complications; E78.5 Hyperlipidemia, unspecified
CPT/HCPCS: 36415; 74176; 80053; 81001; 82150; 83690; 85025; 99284; J0360; J1885; J2405

== ENCOUNTER 2022-01-04 20:44 | Emergency (ER) | payer MEDICARE ==
[~2022-01-04] VITALS: Ht 167.6 cm; Wt 81.2 kg
[2022-01-04] MEDS ORDERED: SODIUM CHLORIDE 0.9% 1000ML 1,000 ML IV STA (20:49)
[2022-01-04] MEDS ORDERED: ONDANSETRON HCL INJ 2MG/ML 2ML 2 MG/ML VIAL IV PRN (21:00)
[2022-01-04 21:12] LABS: BASOPHILS # (AUTO) 0.1 (0.0-0.1); BASOPHILS % 1.1 % (0.0-1.0); EOSINOPHILS % 0.9 % (0.0-6.0); HEMATOCRIT 35.8 % (38.2-49.6); HEMOGLOBIN 11.4 g/dL (14.0-18.0); LYMPHOCYTES # (AUTO) 1.2 (1.0-3.2); LYMPHOCYTES % 26.1 % (18.0-39.1); MEAN CORPUSCULAR HEMOGLOBIN 31.7 pg (28-32); MEAN CORPUSCULAR HGB CONC 31.8 g/dL (31-35); MEAN CORPUSCULAR VOLUME 99.4 fL (81-99); MONOCYTES # (AUTO) 0.4 (0.2-0.8); MONOCYTES % 8.4 % (4.4-11.3); NEUTROPHILS # (AUTO) 2.9 (2.1-6.9); NEUTROPHILS % 63.1 % (38.7-80.0); PLATELET COUNT 277 x10e3/uL (140-360); RED CELL DISTRIBUTION WIDTH 14.5 % (11.7-14.4)
[2022-01-04 21:33] LABS: ALBUMIN/GLOBULIN RATIO 1.3 (0.8-2.0); ANION GAP 18.5 mmol/L (8-16); CALCIUM 9.4 mg/dL (8.4-10.2); CREATININE, SERUM 1.28 mg/dL (0.72-1.25); POTASSIUM 3.5 mmol/L (3.5-5.1)
[2022-01-04] MEDS ORDERED: ONDANSETRON HCL INJ 2MG/ML 2ML 2 MG/ML VIAL IV STA (21:59)
[2022-01-04] MEDS ORDERED: IOPAMIDOL 370 MG/ML 100 ML INFUS..BTL INJ ONE (21:59)
[2022-01-04 22:19] LABS: CLARITY,URINE CLEAR (CLEAR); COLOR,URINE YELLOW (YELLOW)
[2022-01-04 22:20] LABS: KETONES,URINE NEGATIVE (NEGATIVE); LEUKOCYTE ESTERASE ,URINE NEGATIVE (NEGATIVE); NITRITE,URINE NEGATIVE (NEGATIVE); PROTEIN,URINE DIPSTICK NEGATIVE (NEGATIVE); URINE UROBILINOGEN 0.2 mg/dL (0.2 - 1)
[2022-01-04 22:27] LABS: BACTERIA,URINE MODERATE /HPF; EPITHELIAL CELLS,URINE FEW /LPF; RBC,URINE 21-50 /HPF (0-5)
[2022-01-04 22:28] LABS: HYALINE CASTS 0-1 (0-1)
[2022-01-04] MEDS: FENTANYL CITRATE/PF 100MCG/2 ML INJ IV PRN (22:47)
[2022-01-04] MEDS ORDERED: FENTANYL CITRATE/PF 100MCG/2 ML INJ ONE (22:57)
[2022-01-05] MEDS ORDERED: CEFDINIR300 MG PO (00:02)
[2022-01-05] MEDS ORDERED: CEFTRIAXONE 1 GM VIAL ONE (00:18)
[2022-01-05] MEDS: FENTANYL CITRATE/PF 100MCG/2 ML INJ IV PRN (00:53)
[2022-01-05 01:48] VITALS: BP 139/60
== END 2022-01-05 01:38 | disposition home or self-care (01) ==
LOC: ER 20:48
DX: R10.31 Right lower quadrant pain (principal); N39.0 Urinary tract infection, site not specified; K86.89 Other specified diseases of pancreas; R11.2 Nausea with vomiting, unspecified; Z20.822 Contact with and (suspected) exposure to COVID-19
CPT/HCPCS: 36415; 74177; 80053; 81001; 83605; 83690; 84484; 85025; 87040; 93005; 99284; J0696; J2405; J3010 ×2; J7030; Q9967; U0002